=== PATIENT | male | born 1960 | race Caucasian/White ===

== ENCOUNTER → 2017-06-25 | Outpatient (CLI) | payer OTHER ==
[2017-06-25 10:28] LABS: MEAN CORPUSCULAR HEMOGLOBIN 31.1 pg (27.0-33.0); MEAN CORPUSCULAR HGB CONC 34.2 g/dl (32.0-36.5); MEAN CORPUSCULAR VOLUME 90.9 fl (80.0-96.0); RED CELL DISTRIBUTION WIDTH 12.8 % (11.5-14.5); WHITE BLOOD COUNT 5.9 K/mm3 (4.0-10.0)
[2017-06-25 10:50] LABS: ALBUMIN 3.4 GM/DL (3.2-5.2); ALBUMIN/GLOBULIN RATIO 0.94 (1.00-1.93); ALKALINE PHOSPHATASE 95 U/L (45-117); ALT/SGPT 20 U/L (12-78); ANION GAP 5 MEQ/L (8-16); AST/SGOT 14 U/L (15-37); BILIRUBIN,TOTAL 0.9 MG/DL (0.2-1.0); BLOOD UREA NITROGEN 16 MG/DL (7-18); CALCIUM LEVEL 8.9 MG/DL (8.5-10.1); CARBON DIOXIDE LEVEL 29 MEQ/L (21-32); CHLORIDE LEVEL 108 MEQ/L (98-107); CHOLESTEROL LEVEL 198 MG/DL (<200); CREATININE FOR GFR 0.76 MG/DL (0.70-1.30); GLOMERULAR FILTRATION RATE > 60.0 (>56); GLUCOSE, FASTING 89 MG/DL (70-105); POTASSIUM SERUM 4.1 MEQ/L (3.5-5.1); SODIUM LEVEL 142 MEQ/L (136-145); TRIGLYCERIDES LEVEL 196 MG/DL (<150)
== END ==
LOC: M LAB 09:15
PROVIDERS: ATTEND Family Medicine
DX: I10 Essential (primary) hypertension (principal)

== ENCOUNTER → 2018-08-22 | Outpatient (CLI) | payer OTHER ==
[2018-08-22 09:46] LABS: BASO % 0.4 % (0.0-1.0); EOS # 0.2 10^3/uL (0.0-0.50); EOS % 2.7 % (0.0-3.0); HEMATOCRIT 45.3 % (42.0-52.0); HEMOGLOBIN 15.2 g/dl (13.5-17.5); IMMATURE GRANULOCYTE % 0.5 % (0-3.0); LYMPH # 1.3 10^3/uL (1.5-4.5); LYMPH % 16.7 % (24.0-44.0); MEAN CORPUSCULAR HEMOGLOBIN 29.6 pg (27.0-33.0); MEAN CORPUSCULAR HGB CONC 33.6 g/dl (32.0-36.5); MEAN CORPUSCULAR VOLUME 88.3 fl (80.0-96.0); MONO # 0.6 10^3/uL (0.0-0.8); MONO % 7.6 % (0.0-5.0); NEUTROPHILS # 5.6 10^3/uL (1.8-7.7); NEUTROPHILS % 72.1 % (36.0-66.0); PLATELET COUNT, AUTOMATED 246 10^3/uL (150-450); RED BLOOD COUNT 5.13 10^6/uL (4.30-6.10); WHITE BLOOD COUNT 7.8 10^3/uL (4.0-10.0)
[2018-08-22 10:29] LABS: ALBUMIN 3.7 GM/DL (3.2-5.2); ALBUMIN/GLOBULIN RATIO 1.16 (1.00-1.93); ALKALINE PHOSPHATASE 95 U/L (45-117); ALT/SGPT 19 U/L (12-78); ANION GAP 9 MEQ/L (8-16); AST/SGOT 12 U/L (7-37); BILIRUBIN,TOTAL 1.1 MG/DL (0.2-1.0); BLOOD UREA NITROGEN 16 MG/DL (7-18); CALCIUM LEVEL 9.1 MG/DL (8.5-10.1); CARBON DIOXIDE LEVEL 24 MEQ/L (21-32); CHLORIDE LEVEL 108 MEQ/L (98-107); CHOLESTEROL LEVEL 192 MG/DL (<200); CREATININE FOR GFR 0.84 MG/DL (0.70-1.30); FERRITIN 14 NG/ML (26-388); GLOMERULAR FILTRATION RATE > 60.0 (>56); GLUCOSE, FASTING 94 MG/DL (70-100); HDL CHOLESTEROL 48 MG/DL (>40); IRON (FE) 102 UG/DL (65-175); LDL CHOLESTEROL 105 MG/DL (<100); NON-HDL-C 144 MG/DL; POTASSIUM SERUM 4.4 MEQ/L (3.5-5.1); SODIUM LEVEL 141 MEQ/L (136-145); TOTAL IRON BINDING CAPACITY 425 UG/DL (250-450); TOTAL PROTEIN 6.9 GM/DL (6.4-8.2); TRIGLYCERIDES LEVEL 193 MG/DL (<150)
[2018-08-22 10:34] LABS: TOTAL 25(OH) VITAMIN D 19.3 NG/ML (30.0-100.0)
[2018-08-22 10:35] LABS: FOLATE > 24.0 NG/ML
== END ==
LOC: M LAB 09:04
DX: Z98.84 Bariatric surgery status (principal); I10 Essential (primary) hypertension
CPT/HCPCS: 82746

== ENCOUNTER → 2019-08-19 | Outpatient (CLI) | payer OTHER ==
[2019-08-19 08:13] LABS: BASO % 0.5 % (0.0-1.0); EOS # 0.2 10^3/uL (0.0-0.5); EOS % 2.6 % (0.0-3.0); HEMATOCRIT 45.5 % (42.0-52.0); HEMOGLOBIN 15.1 g/dl (13.5-17.5); LYMPH # 1.4 10^3/uL (1.5-5.0); LYMPH % 21.5 % (24.0-44.0); MEAN CORPUSCULAR HEMOGLOBIN 29.3 pg (27.0-33.0); MEAN CORPUSCULAR HGB CONC 33.2 g/dl (32.0-36.5); MEAN CORPUSCULAR VOLUME 88.2 fl (80.0-96.0); MONO # 0.6 10^3/uL (0.0-0.8); MONO % 9.6 % (0.0-5.0); NEUTROPHILS # 4.4 10^3/uL (1.5-8.5); NEUTROPHILS % 65.5 % (36.0-66.0); PLATELET COUNT, AUTOMATED 252 10^3/uL (150-450); RED BLOOD COUNT 5.16 10^6/uL (4.30-6.10); WHITE BLOOD COUNT 6.6 10^3/uL (4.0-10.0)
[2019-08-19 08:40] LABS: ALBUMIN 3.7 GM/DL (3.2-5.2); ALT/SGPT 16 U/L (12-78); BILIRUBIN,TOTAL 0.9 MG/DL (0.2-1.0); BLOOD UREA NITROGEN 14 MG/DL (7-18); CARBON DIOXIDE LEVEL 24 MEQ/L (21-32); CHLORIDE LEVEL 111 MEQ/L (98-107); CHOLESTEROL LEVEL 191 MG/DL (<200); CHOLESTEROL RISK RATIO 4.063 (<5); CREATININE FOR GFR 1.02 MG/DL (0.70-1.30); GLOMERULAR FILTRATION RATE > 60.0 (>56); GLUCOSE, FASTING 92 MG/DL (70-100); HDL CHOLESTEROL 47 MG/DL (>40); LDL CHOLESTEROL 109 MG/DL (<100); NON-HDL-C 144 MG/DL; POTASSIUM SERUM 4.3 MEQ/L (3.5-5.1); SODIUM LEVEL 142 MEQ/L (136-145); TOTAL PROTEIN 6.7 GM/DL (6.4-8.2); TRIGLYCERIDES LEVEL 176 MG/DL (<150)
== END ==
LOC: M LAB 07:26
PROVIDERS: ATTEND Family Medicine
DX: I10 Essential (primary) hypertension (principal)

== ENCOUNTER 2020-05-01 15:03 | Emergency (ER) | payer OTHER ==
[~2020-05-01] VITALS: Ht 180.3 cm; Wt 181.0 kg
[2020-05-01 15:04] VITALS: BP 161/101
[2020-05-01] MEDS ORDERED: D 10TAB2 PO (15:14)
[2020-05-01] MEDS ORDERED: TOPR25TA PO (15:14)
[2020-05-01] MEDS ORDERED: ATOR40TA75 PO (15:14)
== END 2020-05-01 15:43 | disposition home or self-care (01) ==
LOC: M ED 15:03
DX: S46.212A Strain of muscle, fascia and tendon of other parts of biceps, left arm, initial encounter (principal); X50.1XXA Overexertion from prolonged static or awkward postures, initial encounter; Y92.832 Beach as the place of occurrence of the external cause; I10 Essential (primary) hypertension; E78.00 Pure hypercholesterolemia, unspecified; M54.9 Dorsalgia, unspecified; Z79.899 Other long term (current) drug therapy

== ENCOUNTER → 2021-03-06 | Outpatient (CLI) | payer OTHER ==
[~2021-03-06] MED LIST: ATOR40TA75 PO; D 10TAB2 PO; TOPR25TA PO
[2021-03-06 10:30] LABS: HEMATOCRIT 47.6 % (42.0-52.0); HEMOGLOBIN 15.2 g/dl (13.5-17.5); MEAN CORPUSCULAR HEMOGLOBIN 28.5 pg (27.0-33.0); MEAN CORPUSCULAR HGB CONC 31.9 g/dl (32.0-36.5); MEAN CORPUSCULAR VOLUME 89.1 fl (80.0-96.0); PLATELET COUNT, AUTOMATED 242 10^3/uL (150-450); RED BLOOD COUNT 5.34 10^6/uL (4.30-6.10); WHITE BLOOD COUNT 7.1 10^3/uL (4.0-10.0)
[2021-03-06 11:25] LABS: ALBUMIN 3.7 GM/DL (3.2-5.2); ALT/SGPT 20 U/L (12-78); BILIRUBIN,TOTAL 1.1 MG/DL (0.2-1.0); BLOOD UREA NITROGEN 14 MG/DL (7-18); CALCIUM LEVEL 9.2 MG/DL (8.5-10.1); CARBON DIOXIDE LEVEL 26 MEQ/L (21-32); CHLORIDE LEVEL 108 MEQ/L (98-107); CHOLESTEROL LEVEL 129 MG/DL (<200); CHOLESTEROL RISK RATIO 2.529 (<5); FERRITIN 23 NG/ML (26-388); FOLATE 10.2 NG/ML (>5.4); GLOMERULAR FILTRATION RATE > 60.0 (>56); GLUCOSE, FASTING 95 MG/DL (70-100); HDL CHOLESTEROL 51 MG/DL (>40); IRON (FE) 80 UG/DL (65-175); LDL CHOLESTEROL 44 MG/DL (<100); NON-HDL-C 78 MG/DL; PERCENT SATURATION 20.6 % (19.7-50.0); POTASSIUM SERUM 4.2 MEQ/L (3.5-5.1); SODIUM LEVEL 139 MEQ/L (136-145); TOTAL 25(OH) VITAMIN D 17.7 NG/ML (30.0-100.0); TOTAL IRON BINDING CAPACITY 388 UG/DL (250-450); TRIGLYCERIDES LEVEL 172 MG/DL (<150); VITAMIN B12 LEVEL 397 PG/ML (247-911)
== END ==
LOC: M LAB 09:14
PROVIDERS: ATTEND Family Medicine
DX: Z98.84 Bariatric surgery status (principal); I10 Essential (primary) hypertension

== ENCOUNTER 2021-04-01 09:56 | Inpatient (IN) | payer OTHER ==
[~2021-04-01] VITALS: Ht 180.3 cm; Wt 189.8 kg
[2021-04-01] MEDS ORDERED: ZOLP5TAB PO (10:15)
[2021-04-01] MEDS ORDERED: D31000TA2 PO (10:15)
[2021-04-01] MEDS ORDERED: METO1TAB32 PO (10:15)
[2021-04-01] MEDS ORDERED: VITA200016 PO (10:15)
[2021-04-01] MEDS ORDERED: NS 1,000 ML IV ONE (10:25)
[2021-04-01] MEDS ORDERED: ONDANSETRON 4MG/2ML VIAL IV ONE (10:25)
[2021-04-01] MEDS ORDERED: fentaNYL 100 MCG/2 ML INJECTION (J3010) IV ONE (10:25)
[2021-04-01 10:36] LABS: BASO # 0.1 10^3/uL (0.0-0.2); BASO % 0.3 % (0.0-1.0); EOS # 0.1 10^3/uL (0.0-0.5); EOS % 0.7 % (0.0-3.0); HEMATOCRIT 47.4 % (42.0-52.0); HEMOGLOBIN 15.2 g/dl (13.5-17.5); LYMPH # 1.7 10^3/uL (1.5-5.0); LYMPH % 9.7 % (24.0-44.0); MEAN CORPUSCULAR HEMOGLOBIN 28.6 pg (27.0-33.0); MEAN CORPUSCULAR HGB CONC 32.1 g/dl (32.0-36.5); MEAN CORPUSCULAR VOLUME 89.3 fl (80.0-96.0); MONO # 0.8 10^3/uL (0.0-0.8); MONO % 4.3 % (2.0-8.0); NEUTROPHILS % 84.5 % (36.0-66.0); PLATELET COUNT, AUTOMATED 338 10^3/uL (150-450); RED BLOOD COUNT 5.31 10^6/uL (4.30-6.10); WHITE BLOOD COUNT 17.7 10^3/uL (4.0-10.0)
[2021-04-01 11:00] LABS: ALBUMIN 3.4 GM/DL (3.2-5.2); BILIRUBIN,DIRECT 0.2 MG/DL (0.0-0.2); BILIRUBIN,TOTAL 0.8 MG/DL (0.2-1.0); TOTAL PROTEIN 7.1 GM/DL (6.4-8.2)
[2021-04-01 11:15] LABS: CK-MB VALUE MASS < 1.0 NG/ML (<3.6); CPK CREATINE PHOSPHOKINASE 72 U/L (39-308); MB/CK RELATIVE INDEX 1.39 (< OR =4); TROPONIN I < 0.02 NG/ML (< 0.10)
[2021-04-01] MEDS ORDERED: GASTROGRAFIN SOLUTION 30ML PO ONE (11:30)
[2021-04-01] MEDS: fentaNYL 100 MCG/2 ML INJECTION (J3010) IV PRN ×2 (11:42→12:50)
[2021-04-01] MEDS ORDERED: ISOVUE-370 76% 100ML VIAL As Ordered ONE (11:51)
[2021-04-01] MEDS ORDERED: PIPERACILLIN/TAZOBACTAM SOD 3.375 GM in D5W MINI-BAG PLUS 50 ML IV ONE (12:30)
[2021-04-01] MEDS ORDERED: NS 1,000 ML IV SCH (12:35)
--- NOTE | 2021-04-01 12:42 | REP ---
INDICATION: r/o perforated Addy-En-Y anastamosis. COMPARISON: 03/20/2014 the latest prior TECHNIQUE: Standard helical technique after the intravenous administration of 100 cc Isovue 370 FINDINGS: The lung bases are clear The liver, spleen, pancreas, adrenal glands, and kidneys are again seen to be within normal limits. The abdominal aorta and para-aortic regions are within normal limits. There is no evidence of intestinal obstruction. There is free fluid and free air in the upper abdomen. The osseous structures stable and intact. IMPRESSION: There is free fluid and free air likely arising from the gastric anastomosis site. A phone call was placed to the emergency department in these findings were discussed with at the time of this dictation. Critical Findings: The critical information above was relayed directly by me by telephone to Omero Brizuela on 04/01/2021 at 12:34 pm with readback verification. <Electronically signed by Jonathan German > 04/01/21 1832
[2021-04-01 12:54] LABS: INR 0.96; PARTIAL THROMBOPLASTIN TIME 27.7 SECONDS (24.2-38.5)
[2021-04-01 13:31] LABS: RSV AMPLIFICATION NEGATIVE (NEGATIVE)
--- NOTE | 2021-04-01 13:32 | ECGEPIP ---
[facility] - ED Test Date: 2021-04-01 Pat Name: MYRIAM CARNEY Department: Room: - Gender: Male Ancillary Specialist: JEREMIAS : 1960 Requested By: Omero Pimentel Order Number: [id number] Reading MD: Omero Brizuela Measurements Intervals [place] Rate: 54 P: 34 [place]: 150 QRS: 0 QRSD: 96 T: 14 QT: 456 QTc: 432 Interpretive Statements Sinus bradycardia NSTTW ABNORMALITY(S) NO PRIORS FOR COMPARISON Electronically Signed on 04-01-2021 13:32:15 EDT by Omero Brizuela
[2021-04-01] MEDS ORDERED: LIDOCAINE 1% SDV 30ML VIAL As Ordered ONE (13:36)
[2021-04-01] MEDS ORDERED: BUPIVACAINE HCL 0.25% 30ML VIAL As Ordered ONE (13:36)
[2021-04-01] MEDS ORDERED: LACRILUBE (AKWA TEARS) OPHTH OINT 3.5 GM As Ordered ONE (13:42)
[2021-04-01] MEDS ORDERED: ONDANSETRON 4MG/2ML VIAL As Ordered ONE (13:43)
[2021-04-01] MEDS ORDERED: propofoL 200 MG/20 ML VIAL As Ordered ONE (13:43)
[2021-04-01] MEDS ORDERED: LIDOCAINE 2% 100MG/5ML SDV (FOR ANES.) As Ordered ONE (13:43)
[2021-04-01] MEDS ORDERED: ROCURONIUM BROMIDE 50 MG/5 ML VIAL As Ordered ONE ×3 (13:43→16:35)
[2021-04-01] MEDS ORDERED: dexameTHASONE 4 MG/ML 1ML VIAL (J1100 PER 1MG) As Ordered ONE (13:43)
[2021-04-01] MEDS ORDERED: MIDAZOLAM INJ 2MG/2ML VIAL (J2250 PER 1MG) As Ordered ONE (13:44)
[2021-04-01] MEDS ORDERED: KETAMINE HCL 200 MG/20 ML VIAL As Ordered ONE (13:44)
[2021-04-01] MEDS ORDERED: fentaNYL 250 MCG/5 ML INJECTION (J3010) As Ordered ONE (13:44)
[2021-04-01] MEDS ORDERED: SUGAMMADEX SODIUM 500 MG/5 ML VIAL (BRIDION) As Ordered ONE (13:55)
[2021-04-01] MEDS ORDERED: SUCCINYLCHOLINE 100 MG/5 ML SYRINGE (J0330) As Ordered ONE (14:57)
[2021-04-01] MEDS ORDERED: ePHEDrine SULFATE 25 MG/5 ML(5MG/ML) SYRINGE As Ordered ONE (15:03)
[2021-04-01] MEDS ORDERED: PHENYLephrine 500MCG 5ML (100MCG/ML) SYRINGE As Ordered ONE (15:03)
[2021-04-01] MEDS ORDERED: ACETAMINOPHEN 1000MG 100ML IV BTL (OFIRMEV) (J0131 PER 10MG) As Ordered ONE (15:14)
[2021-04-01] MEDS ORDERED: METHYLENE BLUE 0.5% (5MG/ML) 10 ML AMP (PROVAYBLUE) ONE (17:11)
[2021-04-01] MEDS ORDERED: METHYLENE BLUE 0.5% (5MG/ML) 10 ML AMP (PROVAYBLUE) As Ordered ONE (17:11)
[2021-04-01] MEDS ORDERED: PHENYLEPHRINE 10MG/ML 1ML VIAL (J2370 PER 1) As Ordered ONE (17:23)
[2021-04-01] MEDS ORDERED: fentaNYL 100 MCG/2 ML INJECTION (J3010) As Ordered ONE (18:43)
[2021-04-01] MEDS ORDERED: ONDANSETRON 4MG/2ML VIAL IV PRN (19:15)
[2021-04-01] MEDS ORDERED: oxyCODONE 5MG TAB PO PRN (19:30)
[2021-04-01] MEDS ORDERED: fentaNYL 100 MCG/2 ML INJECTION (J3010) IV PRN (19:30)
[2021-04-01] MEDS ORDERED: LR 1,000 ML IV SCH (19:30)
[2021-04-01 19:57] VITALS: BP 135/81
[2021-04-01] MEDS: PIPERACILLIN/TAZOBACTAM SOD 3.375 GM in D5W MINI-BAG PLUS 50 ML IV SCH (20:16)
[2021-04-01] MEDS: PANTOPRAZOLE 40MG VIAL (C9113 PER 1) IV SCH (20:16)
[2021-04-01] MEDS: SUCRALFATE 1 GM TAB PO SCH (20:16)
[2021-04-01] MEDS: LR 1,000 ML IV SCH (20:22)
[2021-04-01 21:00] VITALS: BP 147/80
[2021-04-01 22:00] VITALS: BP 157/95
[2021-04-01] MEDS: PERCOCET 5MG/325MG TAB PO PRN (23:38)
[2021-04-02] VITALS: BP 130/82
[2021-04-02] MEDS: PIPERACILLIN/TAZOBACTAM SOD 3.375 GM in D5W MINI-BAG PLUS 50 ML IV SCH ×4 (01:23→20:24)
[2021-04-02] MEDS: MORPHINE 2 MG/ML 1ML VIAL (J2270) IV PRN ×2 (01:24→08:04)
[2021-04-02] MEDS: LR 1,000 ML IV SCH ×4 (01:24→20:23)
[2021-04-02 04:00] VITALS: BP 122/76
[2021-04-02] MEDS: PERCOCET 5MG/325MG TAB PO PRN ×2 (04:06→18:41)
[2021-04-02 04:34] LABS: BASO % 0.1 % (0.0-1.0); HEMATOCRIT 44.5 % (42.0-52.0); HEMOGLOBIN 14.2 g/dl (13.5-17.5); LYMPH # 0.9 10^3/uL (1.5-5.0); LYMPH % 5.4 % (24.0-44.0); MEAN CORPUSCULAR HEMOGLOBIN 28.9 pg (27.0-33.0); MEAN CORPUSCULAR HGB CONC 31.9 g/dl (32.0-36.5); MEAN CORPUSCULAR VOLUME 90.6 fl (80.0-96.0); MONO % 6.1 % (2.0-8.0); NEUTROPHILS # 14.5 10^3/uL (1.5-8.5); NEUTROPHILS % 87.7 % (36.0-66.0); PLATELET COUNT, AUTOMATED 258 10^3/uL (150-450); RED BLOOD COUNT 4.91 10^6/uL (4.30-6.10); WHITE BLOOD COUNT 16.5 10^3/uL (4.0-10.0)
[2021-04-02 04:56] LABS: BLOOD UREA NITROGEN 19 MG/DL (7-18); CALCIUM LEVEL 8.3 MG/DL (8.5-10.1); CARBON DIOXIDE LEVEL 26 MEQ/L (21-32); CHLORIDE LEVEL 112 MEQ/L (98-107); CREATININE FOR GFR 1.02 MG/DL (0.70-1.30); GLOMERULAR FILTRATION RATE > 60.0 (>56); GLUCOSE, FASTING 122 MG/DL (70-100); POTASSIUM SERUM 4.2 MEQ/L (3.5-5.1); SODIUM LEVEL 141 MEQ/L (136-145)
[2021-04-02 08:04] VITALS: BP 138/84
--- NOTE | 2021-04-02 09:33 | ROOPDOC ---
[facility] Report Of Operation Report of Operation DATE OF PROCEDURE: 04/01/21 PREPROCEDURE DIAGNOSES: Perforated viscus, morbid obesity BMI 59, gastric bypass status POSTPROCEDURE DIAGNOSES: perforated gastrojejunostomy anastomosis. PROCEDURE: robotic assisted laparoscopic repair of gastrojejunostomy perforation with omental patch repair, intraoperative EGD (Dr. Hurst). SURGEON: Claude Lewis MD ADMINISTRATIVE REPRESENTATIVE: Dr. Hurst performed intraoperative upper endoscopy ANESTHESIA: General Endotracheal Anesthesia. ESTIMATED BLOOD LOSS: Approximately 50 mL. COMPLICATIONS: none, extubated. REMARKS: 60 M morbidly obese with remote history of gastric bypass done laparoscopically in 2009, with one day history of sudden epigastric pain that woke him up this morning. PROCEDURE NOTE: very thick omentum, signs of acute inflammation, exudate on left upper quadrant at the hiatus, near the splenic area. 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 DESCRIPTION OF PROCEDURE: . CLAUDE LEWIS MD April 02, 2021 09:33
--- NOTE | 2021-04-02 09:38 | IPNPDOC ---
Text Note Date of Service The patient was seen on 04/02/21. NOTE Patient underwent emergent surgery for perforation at g-j anastomosis of his g astric bypass yesterday. He was extubated (which was a concern preoperatively given his morbid obesity, bmi 59), hemodynamically stable overnight. I kept him the icu for closer monitoring but over all seems to be doing well saved for pain control. Still relatively low urine output. VS,Fishbone, I+O VS, Fishbone, I+O Laboratory Tests 04/01/21 10:17 04/02/21 04:09 Vital Signs Date Time Temp Pulse Resp B/P (MAP) Pulse Ox O2 Delivery O2 Flow Rate FiO2 04/02/21 08:04 16 2 Nasal Cannula 04/02/21 04:00 2.0 04/02/21 04:00 98.1 83 122/76 (91) I&O- Last 24 Hours up to 6 AM 04/02/21 06:00 Intake Total 7755 ml Output Total 990 ml Balance 6765 ml ELLIOTT LEWIS MD April 02, 2021 09:38
[2021-04-02] MEDS: METOPROLOL SUCC *XL* 25MG TAB (TopROL *XL*) PO SCH (09:44)
[2021-04-02] MEDS: SUCRALFATE 1 GM TAB PO SCH ×4 (09:44→20:24)
[2021-04-02] MEDS: KETOROLAC 30 MG/ML 1ML VIAL IV SCH ×3 (09:44→21:15)
[2021-04-02] MEDS: PANTOPRAZOLE 40MG VIAL (C9113 PER 1) IV SCH ×2 (09:44→20:24)
[2021-04-02] MEDS: ENOXAPARIN 40MG/0.4ML SYRINGE (J1650 PER 10MG) SC SCH (09:45)
[2021-04-02] MEDS: ATORVASTATIN 20 MG TAB PO SCH (09:45)
[2021-04-02 12:00] VITALS: BP 142/85
[2021-04-02 16:00] VITALS: BP 154/77
[2021-04-02] MEDS ORDERED: NS 500 ML IV ONE (16:15)
[2021-04-02 20:00] VITALS: BP 149/82
[2021-04-03] VITALS (10 sets, daily range): BP systolic 129–193; BP diastolic 64–103
[2021-04-03] MEDS: LR 1,000 ML IV SCH ×3 (01:33→12:20)
[2021-04-03] MEDS: PIPERACILLIN/TAZOBACTAM SOD 3.375 GM in D5W MINI-BAG PLUS 50 ML IV SCH ×4 (01:33→20:49)
[2021-04-03] MEDS: KETOROLAC 30 MG/ML 1ML VIAL IV SCH ×4 (03:07→22:57)
[2021-04-03 04:16] LABS: BASO % 0.3 % (0.0-1.0); EOS # 0.3 10^3/uL (0.0-0.5); EOS % 2.4 % (0.0-3.0); HEMATOCRIT 38.5 % (42.0-52.0); HEMOGLOBIN 12.1 g/dl (13.5-17.5); LYMPH # 0.7 10^3/uL (1.5-5.0); LYMPH % 6.8 % (24.0-44.0); MEAN CORPUSCULAR HEMOGLOBIN 28.7 pg (27.0-33.0); MEAN CORPUSCULAR HGB CONC 31.4 g/dl (32.0-36.5); MEAN CORPUSCULAR VOLUME 91.4 fl (80.0-96.0); MONO # 0.7 10^3/uL (0.0-0.8); MONO % 6.2 % (2.0-8.0); NEUTROPHILS % 83.8 % (36.0-66.0); PLATELET COUNT, AUTOMATED 200 10^3/uL (150-450); RED BLOOD COUNT 4.21 10^6/uL (4.30-6.10); WHITE BLOOD COUNT 10.7 10^3/uL (4.0-10.0)
[2021-04-03 04:40] LABS: BLOOD UREA NITROGEN 20 MG/DL (7-18); CALCIUM LEVEL 7.6 MG/DL (8.5-10.1); CARBON DIOXIDE LEVEL 28 MEQ/L (21-32); CHLORIDE LEVEL 110 MEQ/L (98-107); CREATININE FOR GFR 0.99 MG/DL (0.70-1.30); GLOMERULAR FILTRATION RATE > 60.0 (>56); GLUCOSE, FASTING 93 MG/DL (70-100); POTASSIUM SERUM 3.9 MEQ/L (3.5-5.1); SODIUM LEVEL 141 MEQ/L (136-145)
[2021-04-03] MEDS: SUCRALFATE 1 GM TAB PO SCH ×4 (09:08→20:49)
[2021-04-03] MEDS: METOPROLOL SUCC *XL* 25MG TAB (TopROL *XL*) PO SCH (09:09)
[2021-04-03] MEDS: ATORVASTATIN 20 MG TAB PO SCH (09:09)
[2021-04-03] MEDS: PANTOPRAZOLE 40MG VIAL (C9113 PER 1) IV SCH ×2 (09:10→20:49)
[2021-04-03] MEDS: ENOXAPARIN 40MG/0.4ML SYRINGE (J1650 PER 10MG) SC SCH (09:10)
[2021-04-03] MEDS: VoLumen 0.1% SUSPENSION 450ML BOTTLE PO SCH ×3 (12:54→13:40)
[2021-04-03] MEDS ORDERED: GLUCAGON INJ 1MG VIAL As Ordered ONE (13:36)
[2021-04-03] MEDS ORDERED: ISOVUE-370 76% 100ML VIAL As Ordered ONE ×2 (13:47→14:24)
[2021-04-03] MEDS: PERCOCET 5MG/325MG TAB PO PRN (15:18)
--- NOTE | 2021-04-03 16:46 | REP ---
INDICATION: s/ gastric bypass r/o g-g fistula, j-j narrowing COMPARISON: 04/01/2021. TECHNIQUE: CT Scan of the abdomen and pelvis was performed with intravenous administration of 100 cc of Isovue 370, and volumen oral contrast. Sagittal and coronal reconstruction images are performed. There was estimated to be about 50-70 cc of infiltration of IV contrast at the IV site. Instructions were given for short-term treatment of the site. The study is limited due to patient motion. FINDINGS: Lung bases: Calcified granuloma in the lingular segment of the left upper lobe. There is a small left pleural effusion. There is patchy atelectasis or infiltrate in the left lower lobe. Mild parenchymal opacity in the right posterior costophrenic angle probably represent dependent atelectatic change. Liver: There is a tiny calcified granuloma in the liver. Gallbladder: Prior cholecystectomy. Spleen: A 1.5 cm hypodensity in the anterior superior spleen is unchanged, possibly a cyst. Few calcified splenic granulomas are seen. Adrenals: Normal. Pancreas: Normal. Kidneys: Normal. Small and large bowel: There is a tiny focus of extraluminal air lateral to the stomach. Small amount of extraluminal air and fluid is seen anterior to the spleen. The previously noted contrast and air directly adjacent to the stomach is no longer visualized. There is a decreased amount of free intraperitoneal air compared to the prior study. A drain enters the right mid abdomen and the distal tip is in the upper mid abdomen. There are a few sigmoid diverticula present. There is no evidence of significant bowel dilatation. There is no definite evidence of focal bowel stricture. Free fluid: None. Abdominal aorta: No aneurysm or dissection. Adenopathy: None. Appendix: Not inflamed. Osseous structures: There are degenerative changes of the spine without compression deformity. Pelvis: No mass. There are venous filters in the common iliac veins bilaterally. IMPRESSION: Small left pleural effusion. Left lower lobe atelectasis or infiltrate. There is a tiny focus of extraluminal air lateral to the stomach. Small amount of extraluminal air and fluid is seen anterior to the spleen, this fluid slightly increased since the prior study. The previously noted contrast and air directly adjacent to the stomach is no longer visualized. There is a decreased amount of free intraperitoneal air compared to the prior study. <Electronically signed by Niranjan Drew > 04/03/21 [id number]
[2021-04-03] MEDS: MORPHINE 2 MG/ML 1ML VIAL (J2270) IV PRN (21:34)
[2021-04-03] MEDS: NITROGLYCERIN 2% OINT 1 GM *U/D* PKT TOP SCH (22:58)
[2021-04-04] VITALS (12 sets, daily range): BP systolic 131–185; BP diastolic 68–98
[2021-04-04] MEDS: LR 1,000 ML IV SCH (01:23)
[2021-04-04] MEDS: PIPERACILLIN/TAZOBACTAM SOD 3.375 GM in D5W MINI-BAG PLUS 50 ML IV SCH ×4 (02:24→21:06)
[2021-04-04] MEDS: KETOROLAC 30 MG/ML 1ML VIAL IV SCH (04:39)
[2021-04-04] MEDS: NITROGLYCERIN 2% OINT 1 GM *U/D* PKT TOP SCH ×4 (04:42→21:27)
[2021-04-04 05:08] LABS: BASO % 0.3 % (0.0-1.0); EOS # 0.3 10^3/uL (0.0-0.5); EOS % 3.4 % (0.0-3.0); HEMATOCRIT 37.8 % (42.0-52.0); LYMPH # 0.5 10^3/uL (1.5-5.0); LYMPH % 5.6 % (24.0-44.0); MEAN CORPUSCULAR HEMOGLOBIN 28.8 pg (27.0-33.0); MEAN CORPUSCULAR HGB CONC 31.7 g/dl (32.0-36.5); MEAN CORPUSCULAR VOLUME 90.6 fl (80.0-96.0); MONO # 0.6 10^3/uL (0.0-0.8); MONO % 6.6 % (2.0-8.0); NEUTROPHILS # 7.9 10^3/uL (1.5-8.5); NEUTROPHILS % 83.6 % (36.0-66.0); PLATELET COUNT, AUTOMATED 211 10^3/uL (150-450); RED BLOOD COUNT 4.17 10^6/uL (4.30-6.10); WHITE BLOOD COUNT 9.4 10^3/uL (4.0-10.0)
[2021-04-04 05:42] LABS: BLOOD UREA NITROGEN 12 MG/DL (7-18); CARBON DIOXIDE LEVEL 26 MEQ/L (21-32); CHLORIDE LEVEL 108 MEQ/L (98-107); CREATININE FOR GFR 0.83 MG/DL (0.70-1.30); GLOMERULAR FILTRATION RATE > 60.0 (>56); GLUCOSE, FASTING 79 MG/DL (70-100); POTASSIUM SERUM 4.1 MEQ/L (3.5-5.1); SODIUM LEVEL 140 MEQ/L (136-145)
--- NOTE | 2021-04-04 07:25 | IPNPDOC ---
Text Note Date of Service The patient was seen on 04/04/21. NOTE POD 3 Robotic assisted laparoscopic repair of gastrojejunal perforation, omen toplasty gastric bypass status morbid obesity with bmi 59. 6 Patient not able to be accomodated on fluoroscopy table due to weight. i got a CT enterogram instead. Unfortunately did not give me much new information. There is no evidence for bowel obstruction, small amount of retained air near the sp boni. No fluid collection will start po intake today transfer to regular floors pt continue bid protonix, will add carafate continue abx - 7 days VS,Fishbone, I+O VS, Fishbone, I+O Laboratory Tests 04/04/21 04:59 Vital Signs Date Time Temp Pulse Resp B/P (MAP) Pulse Ox O2 Delivery O2 Flow Rate FiO2 04/04/21 06:00 84 18 156/75 (102) 96 Room Air 04/04/21 00:00 99.5 04/03/21 08:00 2.0 I&O- Last 24 Hours up to 6 AM 04/04/21 06:00 Intake Total 4185 ml Output Total 140 ml Balance 4045 ml ELLIOTT LEWIS MD April 04, 2021 07:25
[2021-04-04] MEDS: ENOXAPARIN 40MG/0.4ML SYRINGE (J1650 PER 10MG) SC SCH (08:18)
[2021-04-04] MEDS: PANTOPRAZOLE 40MG VIAL (C9113 PER 1) IV SCH ×2 (08:18→21:06)
[2021-04-04] MEDS: SUCRALFATE 1 GM TAB PO SCH ×4 (08:19→21:06)
[2021-04-04] MEDS: ATORVASTATIN 20 MG TAB PO SCH (08:19)
[2021-04-04] MEDS: METOPROLOL SUCC *XL* 25MG TAB (TopROL *XL*) PO SCH (08:19)
--- NOTE | 2021-04-04 13:18 | HPEPDOC ---
General Surgery H&P Date of Admission April 01, 2021 Attending Physician: ELLIOTT LEWIS MD History and Physical CHIEF COMPLAINT: abdominal pain HISTORY OF PRESENT ILLNESS: Patient is a 60-year-old male who had a remote history of laparoscopic gastric bypass performed roughly about 10 years ago in [facility] in [place]. Reports he was roughly about 575 pounds at that time. He did well initially from his gastric bypass surgery and lost weight but through time regained a lot of the weight that he lost. Currently weighs about 440 pounds. He denies any prior problems with his gastric bypass, any dumping syndrome, and prior anastomotic ulcers. He denies smoking. This morning he got woken up with severe, sharp epigastric pain radiating to the ABDOMEN into his chest associated with nausea. This was roughly about 4 AM in the morning. He denies any prior episodes of similar symptoms. With the severe pain he was brought to the emergency room ALLERGIES: Please see below. HOME MEDICATIONS: Please see below. PAST MEDICAL HISTORY: 1. morbid obesity 2. denies diabets, PAPO 3.insomnia 4. hypertension 5. hypercholesterolemia PAST SURGICAL HISTORY: 1. tonsillectomy/adenoidectomy 2. Laparoscopic gastric bypass 3. umbilical hernia repair 4. Laparoscopic Cholecystectomy. 5. Femoral Stents 6. Left hand tendon repair PERSONAL/SOCIAL HISTORY: Denies smoking, alcohol use, or recreational drug use. REVIEW OF SYSTEMS: GENERAL: Symptoms are a few hours old. Denies abnormal weight loss, fevers or chills. HEENT: denies problems with vision or hearing. NECK: denies any neck pain. CARDIOVASCULAR: Denies chest pain and palpitations. MUSCULOSKELETAL: reports back pain. SKIN: Denies rash. NEUROLOGIC: Denies headache, stroke and transient ischemic attack PSYCHIATRIC: Denies anxiety and depression. ENDOCRINE: Denies thyroid disease. HEMATOLOGY/ONCOLOGY: Denies any bleeding or clotting disorder. HEART: Denies any chest pains, palpitations, paroxysmal dyspnea, orthopnea. PULMONARY: Denies chronic cough, dyspnea and wheezing. GASTROINTESTINAL: see above. He had a loose bm this morning at 4 am. GENITOURINARY: Denies dysuria, frequency, hematuria and nocturia. Denies obstructive sleep apnea. Reports he was tested before his gastric bypass and deemed he did not have any PAPO at that time. ENDOCRINE: Denies polydipsia, polyphagia, polyuria, heat or cold intolerance. INFECTIOUS: Denies any recent upper respiratory tract infection, UTI, need for use of antibiotics. NUTRITION: usually good appetite, none today. PHYSICAL EXAMINATION: VITAL SIGNS: Please see below. GENERAL APPEARANCE: Patient seen very uncomfortable, splinting when taking the [place], laying on the bed. Awake, alert, oriented. HEENT: Normocephalic, atraumatic. [place] palpebral conjunctivae. Anicteric sclerae. Lips dry. CHEST: No chest wall abnormalities. Slight tachypnea, shallow deep breaths, splinting with deep breaths due to abdominal pain, no wheezes. NECK: Short supple neck. LUNGS: Lung sounds are clear to auscultation bilaterally. No wheezing appreciated. HEART: No chest wall abnormalities. Heart rate and rhythm are regular with no murmurs. ABDOMEN: Markedly obese abdomen, large draping pannus. Several arthroscopic port sites noted on his upper abdomen. Did not peanut picker whether he has some curvilinear incision at the umbilicus but he does have some thickening underneath there. No obvious herniations. He is exquisitely tender over the epigastric area with rebound and guarding even to light tactile palpation. No skin changes. Feels moderately distended on the upper abdomen. SKIN: Warm and dry. EXTREMITIES: Minimal chronic lower extremity edema. NEUROLOGICAL: Awake, alert and oriented. ANCILLARIES: . LABORATORY DATA: Please see below. MICROBIOLOGY: Please see below. IMAGING: CT abdomen and pelvis. There is free fluid and free air likely arising from the gastric anastomosis site. IMPRESSION AND PLAN: Perforated viscus likely perforation at the gastrojejunostomy anastomosis Bariatric surgery status Morbid obesity with a BMI 59.6 Generalized peritonitis Patient symptoms consistent with acute onset of perforation roughly about 4 AM that woke him up possibly secondary to gastrojejunal ulcer perforation. He had a prior history of gastric bypass done 10 years ago. Unfortunately he has regained most of the weight that he initially lost. We will bring him to the operating room. I'll attempt to do this laparoscopically with the da Leeanna robot surgery to help me with the procedure. Patient has been given a dose of Zosyn 3.375 g IV which we will continue. He was bolused with 1 L of normal saline. I'll keep him at 150 mL's of lactated Ringer's. He was advised that he needs surgery and has consented to it. We discussed risks and benefits of the surgery. We will proceed with the surgery soon as the operating room is available. Vital Signs Vital Signs Date Time Temp Pulse Resp B/P (MAP) Pulse Ox O2 Delivery O2 Flow Rate FiO2 04/01/21 13:30 80 132/65 (87) 94 Nasal Cannula 2.0 04/01/21 12:50 17 04/01/21 10:07 98.1 Laboratory Data Labs 24H Laboratory Tests 2 04/01/21 10:17: Immature Granulocyte % (Auto) 0.5, Neutrophils (%) (Auto) 84.5H, Lymphocytes (%) (Auto) 9.7L, Monocytes (%) (Auto) 4.3, Eosinophils (%) (Auto) 0.7, Basophils (%) (Auto) 0.3, Neutrophils # (Auto) 15.0H, Lymphocytes # (Auto) 1.7, Monocytes # (Auto) 0.8, Eosinophils # (Auto) 0.1, Basophils # (Auto) 0.1, Nucleated Red Blood Cells % (auto) 0.0, Prothrombin Time 13.0, Prothromb Time International Ratio 0.96, Activated Partial Thromboplast Time 27.7, Lactic Acid Level 3.0*H, Total Bilirubin 0.8, Direct Bilirubin 0.2, Aspartate Amino Transf (AST/SGOT) 13, Alanine Aminotransferase (ALT/SGPT) 21, Alkaline Phosphatase 110, Total Creatine Kinase 72, Creatine Kinase MB < 1.0, Creatine Kinase MB Relative Index 1.39, Troponin I < 0.02, Total Protein 7.1, Albumin 3.4, Albumin/Globulin Ratio 0.9, L ipase 99 04/01/21 10:28: POC Glucose (Misc Panel) 162H, POC Sodium (Misc Panel) 140, POC Potassium (Misc Panel) 4.2, POC Chloride (Misc Panel) 107, POC Total CO2 (Misc Panel) 25.0, POC Blood Urea Nitrogen (Misc Panel 18, POC Ionized Calcium (Misc Panel) 4.6, POC Creatinine (Misc Panel) 1.0, POC Hematocrit (Misc Panel) 47.0 04/01/21 12:36: Coronavirus (COVID-19)(PCR) NEGATIVE, Influenza Type A (RT-PCR) NEGATIVE, Influenza Type B (RT-PCR) NEGATIVE, Respiratory Syncytial Virus (PCR) NEGATIVE CBC/BMP Laboratory Tests 04/01/21 10:17 Home Medications Scheduled Atorvastatin Calcium (Atorvastatin Calcium) 40 Mg Tablet, 40 MG PO DAILY, (Reported) Cholecalciferol (Vitamin D3) (Vitamin D3) 50 Mcg Capsule, 50 MCG PO DAILY, (Reported) Metoprolol Succinate (Metoprolol Succinate) 25 Mg Tab.er.24h, 25 MG PO DAILY, (Reported) Scheduled PRN Zolpidem Tartrate (Zolpidem Tartrate) 5 Mg Tablet, 5 MG PO QHS PRN for SLEEP, (Reported) Allergies Coded Allergies: No Known Allergies (Unverified , 05/01/20) A-FIB/CHADSVASC A-FIB History Current/History of A-Fib/PAF?: No Current PO Anticoag Therapy: No ELLIOTT LEWIS MD April 01, 2021 13:39
[2021-04-04] MEDS ORDERED: zolPIDEM TARTRATE 5 MG TAB PO PRN (13:30)
[2021-04-04] MEDS: ACETAMINOPHEN TAB 650MG DOSE (2X325MG) PO PRN ×2 (15:21→21:28)
[2021-04-05] MEDS: PIPERACILLIN/TAZOBACTAM SOD 3.375 GM in D5W MINI-BAG PLUS 50 ML IV SCH ×2 (02:42→08:04)
[2021-04-05 06:00] VITALS: BP 134/69
[2021-04-05] MEDS: NITROGLYCERIN 2% OINT 1 GM *U/D* PKT TOP SCH ×4 (06:35→21:01)
[2021-04-05 06:41] LABS: BASO % 0.6 % (0.0-1.0); EOS # 0.4 10^3/uL (0.0-0.5); EOS % 5.2 % (0.0-3.0); HEMOGLOBIN 12.6 g/dl (13.5-17.5); LYMPH # 0.6 10^3/uL (1.5-5.0); LYMPH % 9.4 % (24.0-44.0); MEAN CORPUSCULAR HEMOGLOBIN 28.6 pg (27.0-33.0); MEAN CORPUSCULAR HGB CONC 32.3 g/dl (32.0-36.5); MEAN CORPUSCULAR VOLUME 88.6 fl (80.0-96.0); MONO # 0.6 10^3/uL (0.0-0.8); MONO % 8.7 % (2.0-8.0); NEUTROPHILS # 5.1 10^3/uL (1.5-8.5); NEUTROPHILS % 75.2 % (36.0-66.0); PLATELET COUNT, AUTOMATED 242 10^3/uL (150-450); WHITE BLOOD COUNT 6.8 10^3/uL (4.0-10.0)
[2021-04-05 07:09] LABS: BLOOD UREA NITROGEN 7 MG/DL (7-18); CALCIUM LEVEL 9.2 MG/DL (8.5-10.1); CARBON DIOXIDE LEVEL 26 MEQ/L (21-32); CHLORIDE LEVEL 108 MEQ/L (98-107); CREATININE FOR GFR 0.76 MG/DL (0.70-1.30); GLOMERULAR FILTRATION RATE > 60.0 (>56); GLUCOSE, FASTING 95 MG/DL (70-100); POTASSIUM SERUM 3.5 MEQ/L (3.5-5.1); SODIUM LEVEL 139 MEQ/L (136-145)
[2021-04-05] MEDS: PANTOPRAZOLE 40MG VIAL (C9113 PER 1) IV SCH (08:04)
[2021-04-05] MEDS: SUCRALFATE 1 GM TAB PO SCH ×4 (08:05→21:01)
[2021-04-05] MEDS: ENOXAPARIN 40MG/0.4ML SYRINGE (J1650 PER 10MG) SC SCH (08:05)
[2021-04-05] MEDS: ATORVASTATIN 20 MG TAB PO SCH (08:05)
[2021-04-05] MEDS: METOPROLOL SUCC *XL* 25MG TAB (TopROL *XL*) PO SCH (08:06)
--- NOTE | 2021-04-05 11:16 | IPNPDOC ---
Text Note Date of Service The patient was seen on 04/05/21. NOTE General Surgery Dr Duran. POD 4 Robotic assisted laparoscopic repair of gastrojejunal perforation, omentoplasty gastric bypass status morbid obesity with bmi 59. 6 PT ordered 04/04, pending. Tolerating clear liquids. Afebrile VSS Abdomen. Incisions C/D/I, ALIREZA drain 45 mL drainage recorded. WBC 6.8 Hemoglobin 12.6 A/P POD 4 Robotic assisted laparoscopic repair of gastrojejunal perforation, omentoplasty The patient is reviewed and examined as per Dr. Duran this morning. Pain has been controlled. Tolerating clear liquids continue Protonix, changed to po. Continue Carafate. continue abx, changed to by mouth Cipro/Flagyl, continue 7 days Physical therapy eval. Possibly consider discharge 04/06 pending physical therapy evaluation. VS,Fishbone, I+O VS, Fishbone, I+O Laboratory Tests 04/05/21 06:22 Vital Signs Date Time Temp Pulse Resp B/P (MAP) Pulse Ox O2 Delivery O2 Flow Rate FiO2 04/05/21 10:19 153/84 04/05/21 10:16 98.8 04/05/21 08:16 81 16 92 Room Air 04/05/21 06:00 2.0 I&O- Last 24 Hours up to 6 AM 04/05/21 06:00 Intake Total 2201 ml Output Total 55 ml Balance 2146 ml Aziza Epps April 05, 2021 11:16
[2021-04-05] MEDS: CIPROFLOXACIN 500MG TABLET PO SCH ×2 (11:42→17:42)
[2021-04-05] MEDS: ACETAMINOPHEN TAB 650MG DOSE (2X325MG) PO PRN ×3 (11:44→23:45)
[2021-04-05] MEDS: metroNIDAZOLE (FLAGYL) 500MG TABLET PO SCH ×2 (13:05→21:01)
[2021-04-05 14:00] VITALS: BP 151/74
[2021-04-05] MEDS: PANTOPRAZOLE 40MG TAB (PROTONIX) PO SCH (21:01)
[2021-04-05 22:00] VITALS: BP 144/84
[2021-04-06] MEDS: NITROGLYCERIN 2% OINT 1 GM *U/D* PKT TOP SCH ×2 (04:43→09:21)
[2021-04-06] MEDS: CIPROFLOXACIN 500MG TABLET PO SCH (05:27)
[2021-04-06] MEDS: metroNIDAZOLE (FLAGYL) 500MG TABLET PO SCH (05:27)
[2021-04-06] MEDS: ACETAMINOPHEN TAB 650MG DOSE (2X325MG) PO PRN (05:54)
[2021-04-06 06:00] VITALS: BP 145/81
[2021-04-06 06:24] LABS: BASO % 0.6 % (0.0-1.0); EOS # 0.5 10^3/uL (0.0-0.5); EOS % 6.8 % (0.0-3.0); HEMATOCRIT 39.9 % (42.0-52.0); LYMPH # 0.8 10^3/uL (1.5-5.0); LYMPH % 12.1 % (24.0-44.0); MEAN CORPUSCULAR HEMOGLOBIN 28.8 pg (27.0-33.0); MEAN CORPUSCULAR HGB CONC 32.6 g/dl (32.0-36.5); MEAN CORPUSCULAR VOLUME 88.3 fl (80.0-96.0); MONO # 0.7 10^3/uL (0.0-0.8); MONO % 10.1 % (2.0-8.0); NEUTROPHILS # 4.8 10^3/uL (1.5-8.5); NEUTROPHILS % 69.4 % (36.0-66.0); PLATELET COUNT, AUTOMATED 269 10^3/uL (150-450); RED BLOOD COUNT 4.52 10^6/uL (4.30-6.10); WHITE BLOOD COUNT 6.9 10^3/uL (4.0-10.0)
[2021-04-06 06:41] LABS: BLOOD UREA NITROGEN 6 MG/DL (7-18); CALCIUM LEVEL 8.8 MG/DL (8.5-10.1); CARBON DIOXIDE LEVEL 27 MEQ/L (21-32); CHLORIDE LEVEL 108 MEQ/L (98-107); CREATININE FOR GFR 0.71 MG/DL (0.70-1.30); GLOMERULAR FILTRATION RATE > 60.0 (>56); GLUCOSE, FASTING 96 MG/DL (70-100); POTASSIUM SERUM 3.3 MEQ/L (3.5-5.1); SODIUM LEVEL 140 MEQ/L (136-145)
[2021-04-06] MEDS ORDERED: SUCR1TA PO (08:39)
[2021-04-06] MEDS ORDERED: PANT40TA29 PO (08:39)
[2021-04-06] MEDS ORDERED: FLAG500T PO (08:39)
[2021-04-06] MEDS ORDERED: CIPR-249 PO (08:39)
[2021-04-06] MEDS ORDERED: AMLO1TAB25 PO (08:41)
[2021-04-06 09:20] VITALS: BP 140/82
[2021-04-06] MEDS: ENOXAPARIN 40MG/0.4ML SYRINGE (J1650 PER 10MG) SC SCH (09:20)
[2021-04-06] MEDS: METOPROLOL SUCC *XL* 25MG TAB (TopROL *XL*) PO SCH (09:20)
[2021-04-06] MEDS: PANTOPRAZOLE 40MG TAB (PROTONIX) PO SCH (09:20)
[2021-04-06] MEDS: SUCRALFATE 1 GM TAB PO SCH (09:20)
[2021-04-06] MEDS: ATORVASTATIN 20 MG TAB PO SCH (09:20)
--- NOTE | 2021-04-06 15:48 | DS.PDOC ---
Discharge Summary General Date of Admission April 01, 2021 at 19:11 Date of Discharge 04/06/21 Discharge Summary PROCEDURES PERFORMED DURING STAY: Robotic assisted laparoscopic repair of gastrojejunal perforation, omentoplasty as per Dr. Duran 04/01/21 ADMITTING DIAGNOSES: Perforated viscus likely perforation at the gastrojejunostomy anastomosis Bariatric surgery status Morbid obesity with a BMI 59.6 Generalized peritonitis Hypertension Dyslipidemia Insomnia DISCHARGE DIAGNOSES: Perforated viscus likely perforation at the gastrojejunostomy anastomosis status post Robotic assisted laparoscopic repair of gastrojejunal perforation, omentoplasty as per Dr. Duran 04/01/21 Bariatric surgery status Morbid obesity with a BMI 59.6 Generalized peritonitis Hypertension Dyslipidemia Insomnia HISTORY OF PRESENT ILLNESS: Patient is a 60-year-old male who had a remote history of laparoscopic gastric bypass performed roughly about 10 years ago in [facility] in [place]. Reports he was roughly about 575 pounds at that time. He did well initially from his gastric bypass surgery and lost weight but through time regained a lot of the weight that he lost. Currently weighs about 440 pounds. He denied any prior problems with his gastric bypass, any dumping syndrome, and prior anastomotic ulcers. On the morning of admission he got woken up with severe, sharp epigastric pain radiating to the abdomen and into his chest associated with nausea. This was roughly about 4 AM in the morning. He denies any prior episodes of similar symptoms. With the severe pain he was brought to the emergency room HOSPITAL COURSE: The patient was reviewed and examined as per Dr. Duran. The patient's symptoms were felt consistent with acute onset of perforation roughly about 4 AM that woke him up possibly secondary to gastrojejunal ulcer perforation. He had a prior history of gastric bypass done 10 years ago. Unfortunately he has regained most of the weight that he initially lost. Plan was for robotic-assisted laparoscopic repair of gastrojejunal perforation, omentoplasty as per Dr. Duran. The patient was placed on IV Zosyn, IV fluids. The patient tolerated the procedure, he was extubated and hemodynamically stable following the procedure. She was initially monitored in the ICU. By 04/04/21 the patient was felt stable to transfer to a regular floor. The patient was continued on Protonix twice a day, Carafate was added. The patient was started on clear liquids 04/04. Physical therapy was requested 512 and the patient was felt at his baseline status and safe for discharge home. Was tolerating clear liquids and was advanced to soft diet. During his admission his blood pressure was noted to be elevated, Norvasc 10 mg daily was added blood pressure at the time of discharge was noted to be 140/82. The patient was transitioned to oral antibiotics with plan to continue for 7 days. By 04/06/21 the patient was felt stable for discharge home. He was noted to have 85 mL out of his ALIREZA on 04/05 and the plan was for him to go home with the ALIREZA drain and follow-up next week with Dr. Duran. DISCHARGE MEDICATIONS: Please see below. ALLERGIES: Please see below. PHYSICAL EXAMINATION ON DISCHARGE: Afebrile GENERAL: No acute distress HEENT: Moist mucous membranes CARDIOVASCULAR EXAMINATION: S1-S2 regular rate rhythm RESPIRATORY EXAMINATION: Clear to auscultation ABDOMINAL EXAMINATION: Surgical incisions clean, dry, intact. ALIREZA drain in place. LABORATORY DATA: Please see below DISCHARGE INSTRUCTIONS: Discharge home No lifting greater than 20 pounds for 2 weeks ALIREZA drain intact, the patient is advised to keep a log of the amount of drainage and bring this to his appointment with Dr. Duran. Continue dry dressing daily to ALIREZA drain area and surgical wounds. Continue to keep incisions clean and dry. Cipro 500 mg by mouth twice a day for an additional 5 days Flagyl 500 mg by mouth every 8 hours for an additional 5 days Follow-up with PCP for continued management of hypertension. Norvasc 10 mg daily for BP control was added during his admission. ITEMS TO FOLLOWUP ON ON OUTPATIENT: Follow-up ALIREZA drain in the office next week. DISCHARGE CONDITION: Stable. TIME SPENT ON DISCHARGE: Greater than 30 minutes. Vital Signs/I&Os Vital Signs Date Time Temp Pulse Resp B/P (MAP) Pulse Ox O2 Delivery O2 Flow Rate FiO2 04/06/21 09:20 81 140/82 04/06/21 06:00 97.5 17 93 04/05/21 23:17 Room Air 04/05/21 06:00 2.0 I&O- Last 24 Hours up to 6 AM 04/06/21 06:00 Intake Total 1250 ml Output Total 43 ml Balance 1207 ml Laboratory Data Labs 24H Laboratory Tests 2 04/06/21 06:00: Immature Granulocyte % (Auto) 1.0, Neutrophils (%) (Auto) 69.4H, Lymphocytes (%) (Auto) 12.1L, Monocytes (%) (Auto) 10.1H, Eosinophils (%) (Auto) 6.8H, Basophils (%) (Auto) 0.6, Neutrophils # (Auto) 4.8, Lymphocytes # (Auto) 0.8L, Monocytes # (Auto) 0.7, Eosinophils # (Auto) 0.5, Basophils # (Auto) 0.0, Nucleated Red Blood Cells % (auto) 0.0, Anion Gap 5L, Glomerular Filtration Rate > 60.0, Calcium Level 8.8 CBC/BMP Laboratory Tests 04/06/21 06:00 Discharge Medications Scheduled Amlodipine Besylate (Amlodipine Besylate) 10 Mg Tablet, 10 MG PO DAILY Atorvastatin Calcium (Atorvastatin Calcium) 40 Mg Tablet, 40 MG PO DAILY, (Reported) Cholecalciferol (Vitamin D3) (Vitamin D3) 50 Mcg Capsule, 50 MCG PO DAILY, (Reported) Ciprofloxacin HCl (Cipro) 500 Mg Tablet, 500 MG PO BID@,18 Metoprolol Succinate (Metoprolol Succinate) 25 Mg Tab.er.24h, 25 MG PO DAILY, (Reported) Metronidazole (Flagyl) 500 Mg Tablet, 500 MG PO Q8H Pantoprazole Sodium (Pantoprazole Sodium) 40 Mg Tablet.dr, 40 MG PO BID Sucralfate (Sucralfate) 1 Gm Tablet, 1 GM PO QID Scheduled PRN Zolpidem Tartrate (Zolpidem Tartrate) 5 Mg Tablet, 5 MG PO QHS PRN for SLEEP, (Reported) Allergies Coded Allergies: No Known Allergies (Unverified , 05/01/20) Aziza Epps April 06, 2021 15:47
== END 2021-04-06 10:48 | disposition home or self-care (01) | DRG 223 ==
LOC: M ED 09:56 → M SDC 13:45 → M ED INP 19:11 → M ICU 20:12 → M MSPAV 04-04 14:53
PROVIDERS: ADMIT Surgery; ATTEND Surgery
PROC: 8E0W4CZ Robotic Assisted Procedure of Trunk Region, Percutaneous Endoscopic Approach (ICD-10-PCS; 2021-04-01)
PROC: 0DJ08ZZ Inspection of Upper Intestinal Tract, Via Natural or Artificial Opening Endoscopic (ICD-10-PCS; 2021-04-01)
PROC: 0DUA47Z Supplement Jejunum with Autologous Tissue Substitute, Percutaneous Endoscopic Approach (ICD-10-PCS; principal; 2021-04-01 12:55)
DX: K95.89 Other complications of other bariatric procedure (principal); K65.0 Generalized (acute) peritonitis; K63.1 Perforation of intestine (nontraumatic); Z68.43 Body mass index [BMI] 50.0-59.9, adult; E66.01 Morbid (severe) obesity due to excess calories; K91.89 Other postprocedural complications and disorders of digestive system; G47.00 Insomnia, unspecified; E78.5 Hyperlipidemia, unspecified; I10 Essential (primary) hypertension; Z79.899 Other long term (current) drug therapy

== ENCOUNTER → 2021-09-08 | Outpatient (CLI) | payer OTHER ==
[~2021-09-08] MED LIST changes: +AMLO1TAB25 PO; +CIPR-249 PO; +D31000TA2 PO; +FLAG500T PO; +METO1TAB32 PO; +PANT40TA29 PO; +SUCR1TA PO; +VITA200016 PO; +ZOLP5TAB PO
== END ==
LOC: M LABSMTC 09:06
PROVIDERS: ATTEND Anesthesiology
DX: Z01.812 Encounter for preprocedural laboratory examination (principal); Z20.822 Contact with and (suspected) exposure to COVID-19

== ENCOUNTER 2021-09-13 08:51 | Day surgery (SDC) | payer OTHER ==
[~2021-09-13] VITALS: Ht 180.3 cm; Wt 177.8 kg
[~2021-09-13 08:51] MED LIST changes: +NS 1,000 ML IV ONE
--- OUTSIDE RECORDS SUMMARY | 2021-09-13 08:54 | CCD | Continuity of Care Document ---
Author Author DEBBIE SAMAYOA, Toni Cooper Organization Unknown Address [address] [facility] [address] [place] [address] Phone [phone] Care Team Providers Care Mortar Carrier Name Role Phone Jesus Alberto Burnette M.D. AUTM [phone] Problems Description No Active Problems Social History Type Date Description Comments Sex Unknown ETOH Use Denies alcohol use Tobacco Use Start: Unknown Denies Smoking Recreational Drug Use Denies Drug Use Allergies, Adverse Reactions, Alerts Description No Known Drug Allergies Medications Active Medications SIG Qnty Indications Ordering Provide r Date Protonix 40mg Tablets DR 1 by mouth every day 30tabs K28.1 Claude Duran MD Atorvastatin Calcium 40mg Tablets 1 qd Unknown Vitamin D3 50mcg (1999 Ut) Capsules 1 qd Unknown Metoprolol Succinate ER 25mg Tablets ER 24HR 1 qd Unknown Zolpidem Tartrate 5mg Tablets 1 QHS prn Unknown Glucosamine Chondroitin 1500 Complex 1500Com Capsules 2 Tabs qd Unknown Immunizations Description No Information Available Vital Signs Date Vital Result Comment 06/27/2021 9:41am BP Systolic 145 mmHg BP Diastolic 84 mmHg Heart Rate 66 /min Height 71 inches 5'11" Weight 394.00 lb BMI (Body Mass Index) 54.9 kg/m2 [place] Body Weight 172 lb Weight 178.718 kg BSA (Body Surface Area) 2.81 m2 04/13/2021 2:43pm BP Systolic 132 mmHg BP Diastolic 80 mmHg Height 71 inches 5'11" Weight 400.12 lb BMI (Body Mass Index) 55.8 kg/m2 [place] Body Weight 172 lb Weight 181.497 kg BSA (Body Surface Area) 2.83 m2 Results Description No Information Available Procedures Date Code Description Status 06/27/2021 65089 Office/Outpatient Established Mo d MDM 30-39 Min Completed Medical Devices Description No Information Available Encounters Type Date Location Provider Dx Diagnosis Office Visit 06/27/2021 9:45a [facility] Ranjit Duran MD Z98.84 Bariatric surgery status K28.1 Acute gastrojejunal ulcer wi th perforation Office Visit 04/13/2021 3:00p [facility] Ranjit Duran MD K28.1 Acute gastrojejunal ulcer wi th perforation Z98.84 Bariatric surgery status Z48.815 Encntr for surgical aftcr fo llowing surgery on the dgstv sys Assessments Date Code Description Provider 06/27/2021 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 Ranjit Duran MD 06/27/2021 K28.1 Gastrojejunal ulcer with perfora tion but without obstruction Claude Duran MD 04/13/2021 K28.1 Gastrojejunal ulcer with perfora tion but without obstruction Claude Duran MD 04/13/2021 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 He continues to do well after the emergent repair of the gastrojejunal ulcer perforation. It turns out that he is not on any acid reducing medications right now. He told me he completed the 30-day course and there was not any refill. He is not complaining of any discomfort at this time, no heartburn symptoms, no dyspepsia. I think it is quite a high risk that I would like to restart him on this and probably should be on some acid reducing medication indefinitely. I will schedule him for an upper endoscopy for follow-up make sure the ulcer healed appropriately as well as rule out other causes that may predispose him to recurrence of the ulcers like foreign body, chronic ulcers.I discussed with the patient the details of the proposed procedure, the benefits of performing the procedure, the most common risks on doing the procedure. This may include risks of aspiration, bleeding and perforation. I have given him a chance to ask questions, voice out concerns. Patient has agreed to proceed Functional Status Description No Information Available Mental Status Description No Information Available Referrals Refer to Reason for Referral Status Appt Date Claude Duran MD Created [address] [address] [phone]
--- OUTSIDE RECORDS SUMMARY | 2021-09-13 08:55 | CCD | Continuity of Care Document ---
Author Author DEBBIE SAMAYOA, Toni Cooper Organization Unknown Address [address] [facility] [address] [place] [address] Phone [phone] Care Team Providers Care Factory Assembler Name Role Phone Jesus Alberto Burnette M.D. AUTM [phone] Problems Description No Active Problems Social History Type Date Description Comments Sex Unknown ETOH Use Denies alcohol use Tobacco Use Start: Unknown Denies Smoking Recreational Drug Use Denies Drug Use Allergies, Adverse Reactions, Alerts Description No Known Drug Allergies Medications Active Medications SIG Qnty Indications Ordering Provide r Date Atorvastatin Calcium 40mg Tablets 1 qd Unknown Vitamin D3 50mcg (2000 Ut) Capsules 1 qd Unknown Metoprolol Succinate [...] lb BMI (Body Mass Index) 54.9 kg/m2 [place] Body Weight 172 lb Weight 178.718 kg BSA (Body Surface Area) 2.81 m2 04/13/2021 2:43pm BP Systolic 132 mmHg BP Diastolic 80 mmHg Height 71 inches 5'11" Weight 400.12 lb BMI (Body Mass Index) 55.8 kg/m2 [place] Body Weight 172 lb Weight 181.497 kg BSA (Body Surface Area) 2.83 m2 Results Description No Information Available Procedures Description No Information Available Medical Devices Description No Information Available Encounters Description No Information Available Assessments Date Code Description Provider 06/27/2021 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
--- OUTSIDE RECORDS SUMMARY | 2021-09-13 08:55 | CCD ---
Author Author [facility] Organization [facility] Address Unknown Phone Unavailable Care Team Providers Care Racing Manager Name Role Phone Carlos A LEWIS MD Unavailable Unavailable Carlos A LEWIS MD Unavailable Unavailable Carlos A LEWIS MD Unavailable Unavailable Carlos A LEWIS MD Unavailable Unavailable Carlos A LEWIS MD Unavailable Unavailable Carlos A LEWIS MD Unavailable Unavailable Carlos A LEWIS MD Unavailable Unavailable Carlos A LEWIS MD Unavailable Unavailable Carlos A LEWIS MD Unavailable Unavailable Carlos A LEWIS MD Unavailable Unavailable Carlos A LEWIS MD Unavailable Unavailable Carlos A LEWIS MD Unavailable Unavailable Carlos A LEWIS MD Unavailable Unavailable Carlos A LEWIS MD Unavailable Unavailable Carlos A LEWIS MD Unavailable Unavailable Carlos A LEWIS MD Unavailable Unavailable Carlos A LEWIS MD Unavailable Unavailable Carlos A LEWIS MD Unavailable Unavailable Carlos A LEWIS MD Unavailable Unavailable Carlos A LEWIS MD Unavailable Unavailable Carlos A LEWIS MD Unavailable Unavailable Carlos A LEWIS MD Unavailable Carlos A Herr MD Unavailable Unavailable Carlos A LEWIS MD Unavailable Unavailable Carlos A LEWIS MD Unavailable Unavailable Carlos A LEWIS MD Unavailable Unavailable Carlos A LEWIS MD Unavailable Unavailable Carlos A LEWIS MD Unavailable Unavailable Carlos A LEWIS MD Unavailable Unavailable Carlos A LEWIS MD Unavailable Unavailable Carlos A LEWIS MD Unavailable Unavailable Carlos A LEWIS MD Unavailable Unavailable Carlos A LEWIS MD Unavailable Unavailable Carlos A LEWIS MD Unavailable Unavailable Re-disclosure Warning The records that you are about to access may contain information from federally-assisted alcohol or drug abuse programs. If such information is present, then the following federally mandated warning applies: This information has been disclosed to you from records protected by federal confidentiality rules (42 CFR part 2). The federal rules prohibit you from making any further disclosure of this information unless further disclosure is expressly permitted by the written consent of the person to whom it pertains or as otherwise permitted by 42 CFR part 2. A general authorization for the release of medical or other information is NOT sufficient for this purpose. The Federal rules restrict any use of the information to criminally investigate or prosecute any alcohol or drug abuse patient.The records that you are about to access may contain highly sensitive health information, the redisclosure of which is protected by Article 27-F of the [facility] Public Health law. If you continue you may have access to information: Regarding HIV / AIDS; Provided by facilities licensed or operated by the [facility] Office of Mental Health; or Provided by the [facility] Office for People With Developmental Disabilities. If such information is present, then the following [facility] mandated warning applies: This information has been disclosed to you from confidential records which are protected by state law. State law prohibits you from making any further disclosure of this information without the specific written consent of the person to whom it pertains, or as otherwise permitted by law. Any unauthorized further disclosure in violation of state law may result in a fine or halfway sentence or both. A general authorization for the release of medical or other information is NOT sufficient authorization for further disc losure. Family History Family Member Name Family Member Gender Family Member Status Date o f Status Description Data Source(s) Unknown Female Problem [facility] ([facility]) Unknown Female Problem [facility] ([facility]) Unknown Female Problem [facility] ([facility]) Unknown Female Problem [facility] ([facility]) Unknown Unknown Problem [facility] ([facility]) Unknown Unknown Problem [facility] ([facility]) Unknown Unknown Problem [facility] ([facility]) Encounters Encounter Providers Location Date Indications Data Source(s ) Outpatient Attender: ELLIOTT Escoto/Sammie/Benton/ Reindl 06/27/2021 09:45:00 AM EDT [facility] ([facility]) Office Visit Attender: ELLIOTT Escoto/Sammie/Benton/ Reindl 04/13/2021 03:00:00 PM EDT [facility] ([facility]) Outpatient 01/21/2021 02:45:28 AM EST - 021 02:45:58 AM EST [facility] ([facility]) Immunizations Vaccine Date Status Description Data Source(s) COVID-19 VACCINE Moderna 03/10/2021 12:00:00 AM EDT completed [facility] Vaccine Series Complete: YESThis Data wa s Submitted to [facility] [employer]. COVID-19 VACCINE Moderna 02/10/2021 12:00:00 AM EDT completed [facility] Vaccine Series Complete: NOThis Data was Submitted to [facility] [employer]. Medications Medication Brand Name Start Date Product Form Dose Route Admi nistrative Instructions Pharmacy Instructions Status Indications Reaction Description Data Source(s) atorvastatin 40 MG Oral Tablet ATORVASTATIN CALCIUM 08/23/2021 1 2:00:00 AM EDT tablet 30 TAKE ONE TABLET BY MOUTH EVERY D AY TAKE ONE TABLET BY MOUTH EVERY DAY SOLD: 08/27/2021 [facility] 5 mg 08/04/2021 12:00:00 AM EDT tablet 30 TAKE ONE TABLET BY MOUTH AT BEDTIME. MAXIMUM DAILY DOSE = 1 TAKE ONE TABLET BY MOUTH AT BEDTIME. MAX IMUM DAILY DOSE = 1 SOLD: 08/05/2021 [facility] 5 mg 06/29/2021 12:00:00 AM EDT tablet 30 TAKE ONE TABLET BY MOUTH DAILY AT BEDTIME MAXIMUM DAILY DOSE = 1 TABLET TAKE ONE TABLET BY MOUTH DAILY AT BEDTIM E MAXIMUM DAILY DOSE = 1 TABLET SOLD: 06/30/2021 [facility] pantoprazole 40 MG Delayed Release Oral Tablet PANTOPRAZOLE SODIUM 06/27/2021 12:00:00 AM EDT tablet,delayed release (DR/EC) 30 T BRISA ONE TABLET BY MOUTH EVERY DAY TAKE ONE TABLET BY MOUTH EVERY DAY SOLD: 08/05/2021 [facility] pantoprazole 40 MG Delayed Release Oral Tablet PANTOPRAZOLE SODIUM 06/27/2021 12:00:00 AM EDT tablet,delayed release (DR/EC) 30 T BRISA ONE TABLET BY MOUTH EVERY DAY TAKE ONE TABLET BY MOUTH EVERY DAY SOLD: 09/08/2021 [facility] pantoprazole 40 MG Delayed Release Oral Tablet PANTOPRAZOLE SODIUM 06/27/2021 12:00:00 AM EDT tablet,delayed release (DR/EC) 30 T BRISA ONE TABLET BY MOUTH EVERY DAY TAKE ONE TABLET BY MOUTH EVERY DAY SOLD: 06/30/2021 [facility] pantoprazole 40 MG Delayed Release Oral Tablet [Protonix] Pr otonix 06/27/2021 12:00:00 AM EDT ORAL active M EDENT ([facility], ) 5 mg 05/30/2021 12:00:00 AM EDT tablet 30 TAKE 1 TABLET BY MOUTH AT EACH BEDTIME MAXIMUM DAILY DOSE = 1 TABLET TAKE 1 TABLET BY MOUTH AT EACH BEDTIME MAXIMUM DAILY DOSE = 1 TABLET SOLD: 06/01/2021 [facility] 5 mg 04/26/2021 12:00:00 AM EDT tablet 30 TAKE 1 TABLET BY MOUTH DAILY AT BEDTIME MAXIMUM DAILY DOSE = 1 TABLET TAKE 1 TABLET BY MOUTH DAILY AT BEDTIME MAXIMUM DAILY DOSE = 1 TABLET SOLD: 04/27/2021 [facility] 25 mg 04/24/2021 12:00:00 AM EDT tablet extended release 24 hr 30 TAKE 1 TABLET BY MOUTH ONCE A DAY TAKE 1 TABLET BY MOUTH ONCE A DAY SOLD: 07/27/2021 [facility] 25 mg 04/24/2021 12:00:00 AM EDT tablet extended release 24 hr 30 TAKE 1 TABLET BY MOUTH ONCE A DAY TAKE 1 TABLET BY MOUTH ONCE A DAY SOLD: 05/27/2021 [facility] 25 mg 04/24/2021 12:00:00 AM EDT tablet extended release 24 hr 30 TAKE 1 TABLET BY MOUTH ONCE A DAY TAKE 1 TABLET BY MOUTH ONCE A DAY SOLD: 04/27/2021 [facility] 25 mg 04/24/2021 12:00:00 AM EDT tablet extended release 24 hr 30 TAKE 1 TABLET BY MOUTH ONCE A DAY TAKE 1 TABLET BY MOUTH ONCE A DAY SOLD: 08/27/2021 [facility] 25 mg 04/24/2021 12:00:00 AM EDT tablet extended release 24 hr 30 TAKE 1 TABLET BY MOUTH ONCE A DAY TAKE 1 TABLET BY MOUTH ONCE A DAY SOLD: 06/27/2021 [facility] 10 mg 04/06/2021 12:00:00 AM EDT tablet 7 TAKE 1 TABLET [10MG] BY MOUTH DAILY TAKE 1 TABLET [10MG] BY MOUTH DAILY SOLD: 04/06/2021 [facility] 500 mg 04/06/2021 12:00:00 AM EDT tablet 10 TAKE 1 TABLET [500MG] BY MOUTH TWO TIMES A DAY AT 6:00AM AND 6:00PM TAKE 1 TABLET [500MG] BY MOUTH TWO TIMES A DAY AT 6:00AM AND 6:00PM SOLD: 04/06/2021 [facility] pantoprazole 40 MG Delayed Release Oral Tablet PANTOPRAZOLE SODIUM 04/06/2021 12:00:00 AM EDT tablet,delayed release (DR/EC) 60 T BRISA 1 TABLET [40MG] BY MOUTH TWO TIMES A DAY TAKE 1 TABLET [40MG] BY MOUTH TWO TIMES A DAY SOLD: 04/06/2021 [facility] Metronidazole 500 MG Oral Tablet METRONIDAZOLE 04/06/2021 12:0 0:00 AM EDT tablet 15 TAKE 1 TABLET [500MG] BY MOUTH E VERY 8 HOURS TAKE 1 TABLET [500MG] BY MOUTH EVERY 8 HOURS SOLD: 04/06/2021 [facility] 1 gram 04/06/2021 12:00:00 AM EDT tablet 120 TAKE 1 TABLET [1 GRAM] BY MOUTH FOUR TIMES A DAY TAKE 1 TABLET [1 GRAM] BY MOUTH FOUR TIMES A DAY SOLD: 04/06/2021 [facility] 25 mg 03/29/2021 12:00:00 AM EDT tablet extended release 24 hr 30 TAKE ONE TABLET BY MOUTH EVERY DAY TAKE ONE TABLET BY MOUTH EVERY DAY SOLD: 03/29/2021 [facility] 50 mcg (2,000 unit) 03/28/2021 12:00:00 AM EDT capsule 30 TAKE ONE CAPSULE BY MOUTH EVERY DAY TAKE ONE CAPSULE BY MOUTH EVERY DAY SOLD: 08/27/2021 [facility] 50 mcg (2,000 unit) 03/28/2021 12:00:00 AM EDT capsule 30 TAKE ONE CAPSULE BY MOUTH EVERY DAY TAKE ONE CAPSULE BY MOUTH EVERY DAY SOLD: 06/27/2021 [facility] 50 mcg (2,000 unit) 03/28/2021 12:00:00 AM EDT capsule 30 TAKE ONE CAPSULE BY MOUTH EVERY DAY TAKE ONE CAPSULE BY MOUTH EVERY DAY SOLD: 04/27/2021 [facility] 50 mcg (2,000 unit) 03/28/2021 12:00:00 AM EDT capsule 30 TAKE ONE CAPSULE BY MOUTH EVERY DAY TAKE ONE CAPSULE BY MOUTH EVERY DAY SOLD: 07/27/2021 [facility] 50 mcg (2,000 unit) 03/28/2021 12:00:00 AM EDT capsule 30 TAKE ONE CAPSULE BY MOUTH EVERY DAY TAKE ONE CAPSULE BY MOUTH EVERY DAY SOLD: 05/27/2021 [facility] 50 mcg (2,000 unit) 03/28/2021 12:00:00 AM EDT capsule 30 TAKE ONE CAPSULE BY MOUTH EVERY DAY TAKE ONE CAPSULE BY MOUTH EVERY DAY SOLD: 03/29/2021 [facility] atorvastatin 40 MG Oral Tablet ATORVASTATIN CALCIUM 03/24/2021 1 2:00:00 AM EDT tablet 30 TAKE ONE TABLET BY MOUTH EVERY D AY TAKE ONE TABLET BY MOUTH EVERY DAY SOLD: 04/27/2021 [facility] atorvastatin 40 MG Oral Tablet ATORVASTATIN CALCIUM 03/24/2021 1 2:00:00 AM EDT tablet 30 TAKE ONE TABLET BY MOUTH EVERY D AY TAKE ONE TABLET BY MOUTH EVERY DAY SOLD: 06/27/2021 [facility] atorvastatin 40 MG Oral Tablet ATORVASTATIN CALCIUM 03/24/2021 1 2:00:00 AM EDT tablet 30 TAKE ONE TABLET BY MOUTH EVERY D AY TAKE ONE TABLET BY MOUTH EVERY DAY SOLD: 05/27/2021 [facility] atorvastatin 40 MG Oral Tablet ATORVASTATIN CALCIUM 03/24/2021 1 2:00:00 AM EDT tablet 30 TAKE ONE TABLET BY MOUTH EVERY D AY TAKE ONE TABLET BY MOUTH EVERY DAY SOLD: 03/27/2021 [facility] atorvastatin 40 MG Oral Tablet ATORVASTATIN CALCIUM 03/24/2021 1 2:00:00 AM EDT tablet 30 TAKE ONE TABLET BY MOUTH EVERY D AY TAKE ONE TABLET BY MOUTH EVERY DAY SOLD: 07/27/2021 [facility] 5 mg 02/16/2021 12:00:00 AM EDT tablet 30 TAKE ONE TABLET BY MOUTH EVERY DAY AT BEDTIME MAXIMUM DAILY DOSE = 1 TABLET TAKE ONE TABLET BY MOUTH EVERY DAY AT BEDTIME MAXIMUM DAILY DOSE = 1 TABLET SOLD: 02/16/2021 [facility] 5 mg 12/27/2020 12:00:00 AM EST tablet 30 TAKE ONE TABLET BY MOUTH EVERY DAY AT BEDTIME MAXIMUM DAILY DOSE = 1 TABLET TAKE ONE TABLET BY MOUTH EVERY DAY AT BEDTIME MAXIMUM DAILY DOSE = 1 TABLET SOLD: 01/17/2021 [facility] 25 mg 12/24/2020 12:00:00 AM EST tablet extended release 24 hr 30 TAKE 1 TABLET BY MOUTH ONCE A DAY TAKE 1 TABLET BY MOUTH ONCE A DAY SOLD: 12/27/2020 [facility] 25 mg 11/21/2020 12:00:00 AM EST tablet extended release 24 hr 30 TAKE ONE TABLET BY MOUTH ONCE DAILY TAKE ONE TABLET BY MOUTH ONCE DAILY SOLD: 11/28/2020 [facility] 25 mcg (1,000 unit) 10/27/2020 12:00:00 AM EST tablet 30 TAKE ONE TABLET BY MOUTH EVERY DAY TAKE ONE TABLET BY MOUTH EVERY DAY SOLD: 11/28/2020 [facility] 25 mcg (1,000 unit) 10/27/2020 12:00:00 AM EST tablet 30 TAKE ONE TABLET BY MOUTH EVERY DAY TAKE ONE TABLET BY MOUTH EVERY DAY SOLD: 02/25/2021 [facility] 25 mcg (1,000 unit) 10/27/2020 12:00:00 AM EST tablet 30 TAKE ONE TABLET BY MOUTH EVERY DAY TAKE ONE TABLET BY MOUTH EVERY DAY SOLD: 12/27/2020 [facility] 25 mg 10/27/2020 12:00:00 AM EST tablet extended release 24 hr 30 TAKE ONE TABLET BY MOUTH EVERY DAY TAKE ONE TABLET BY MOUTH EVERY DAY SOLD: 10/29/2020 [facility] 25 mcg (1,000 unit) 10/27/2020 12:00:00 AM EST tablet 30 TAKE ONE TABLET BY MOUTH EVERY DAY TAKE ONE TABLET BY MOUTH EVERY DAY SOLD: 10/29/2020 [facility] 25 mcg (1,000 unit) 10/27/2020 12:00:00 AM EST tablet 30 TAKE ONE TABLET BY MOUTH EVERY DAY TAKE ONE TABLET BY MOUTH EVERY DAY SOLD: 01/28/2021 [facility] atorvastatin 40 MG Oral Tablet ATORVASTATIN CALCIUM 09/23/2020 1 2:00:00 AM EDT tablet 30 TAKE 1 TABLET BY MOUTH ONCE A DAY TAKE 1 TABLET BY MOUTH ONCE A DAY SOLD: 10/29/2020 [facility] atorvastatin 40 MG Oral Tablet ATORVASTATIN CALCIUM 09/23/2020 1 2:00:00 AM EDT tablet 30 TAKE 1 TABLET BY MOUTH ONCE A DAY TAKE 1 TABLET BY MOUTH ONCE A DAY SOLD: 02/25/2021 [facility] atorvastatin 40 MG Oral Tablet ATORVASTATIN CALCIUM 09/23/2020 1 2:00:00 AM EDT tablet 30 TAKE 1 TABLET BY MOUTH ONCE A DAY TAKE 1 TABLET BY MOUTH ONCE A DAY SOLD: 12/27/2020 [facility] atorvastatin 40 MG Oral Tablet ATORVASTATIN CALCIUM 09/23/2020 1 2:00:00 AM EDT tablet 30 TAKE 1 TABLET BY MOUTH ONCE A DAY TAKE 1 TABLET BY MOUTH ONCE A DAY SOLD: 11/28/2020 [facility] atorvastatin 40 MG Oral Tablet ATORVASTATIN CALCIUM 09/23/2020 1 2:00:00 AM EDT tablet 30 TAKE 1 TABLET BY MOUTH ONCE A DAY TAKE 1 TABLET BY MOUTH ONCE A DAY SOLD: 09/29/2020 [facility] atorvastatin 40 MG Oral Tablet ATORVASTATIN CALCIUM 09/23/2020 1 2:00:00 AM EDT tablet 30 TAKE 1 TABLET BY MOUTH ONCE A DAY TAKE 1 TABLET BY MOUTH ONCE A DAY SOLD: 01/28/2021 [facility] 25 mg 08/25/2020 12:00:00 AM EDT tablet extended release 24 hr 30 TAKE ONE TABLET BY MOUTH EVERY DAY TAKE ONE TABLET BY MOUTH EVERY DAY SOLD: 09/29/2020 [facility] 25 mg 08/25/2020 12:00:00 AM EDT tablet extended release 24 hr 30 TAKE ONE TABLET BY MOUTH EVERY DAY TAKE ONE TABLET BY MOUTH EVERY DAY SOLD: 08/26/2020 [facility] 25 mg 06/20/2020 12:00:00 AM EDT tablet extended release 24 hr 30 TAKE 1 TABLET BY MOUTH ONCE A DAY TAKE 1 TABLET BY MOUTH ONCE A DAY SOLD: 07/29/2020 [facility] 25 mcg (1,000 unit) 04/20/2020 12:00:00 AM EDT tablet 30 TAKE ONE TABLET BY MOUTH EVERY DAY TAKE ONE TABLET BY MOUTH EVERY DAY SOLD: 09/29/2020 [facility] 25 mcg (1,000 unit) 04/20/2020 12:00:00 AM EDT tablet 30 TAKE ONE TABLET BY MOUTH EVERY DAY TAKE ONE TABLET BY MOUTH EVERY DAY SOLD: 08/27/2020 [facility] 25 mcg (1,000 unit) 04/20/2020 12:00:00 AM EDT tablet 30 TAKE ONE TABLET BY MOUTH EVERY DAY TAKE ONE TABLET BY MOUTH EVERY DAY SOLD: 07/29/2020 [facility] 40 mg 03/21/2020 12:00:00 AM EDT tablet 30 TAKE 1 TABLET BY MOUTH ONCE A DAY TAKE 1 TABLET BY MOUTH ONCE A DAY SOLD: 07/29/2020 [facility] atorvastatin 40 MG Oral Tablet ATORVASTATIN CALCIUM 03/21/2020 1 2:00:00 AM EDT tablet 30 TAKE 1 TABLET BY MOUTH ONCE A DAY TAKE 1 TABLET BY MOUTH ONCE A DAY SOLD: 08/27/2020 [facility] Insurance Providers Payer name Policy type / Coverage type Policy ID Covered libertarian ID Covered libertarian's relationship to vences Policy Vences Plan Information [facility] Community Plan Commercial [id number] Self [id number] [facility] O [id number] S [id number] [facility] Health Maintenance Organization (HMO) [id number] Self [facility] Community Plan Commercial [id number] Self [facility]) P [id number] S [id number] [facility] COMMUNITY PLAN [facility] [id number] SP [id number] [facility] [id number] SP [id number] Problems, Conditions, and Diagnoses No Information Surgeries/Procedures Procedure Description Date Indications Data Source(s) OFFICE OUTPATIENT VISIT 25 MINUTES 06/27/2021 12:00:00 AM EDT [facility] ([facility] ) Results ID Date Data Source [id number] 04/01/2021 12:36:00 PM EDT [facility] Name Value Range Interpretation Code Description Data Tova rce(s) Supporting Document(s) SARS coronavirus 2 RNA [Presence] in Res piratory specimen by ANAY with probe detection NEGATIVE [facility] This lab was ordered by [facility] a nd reported by [facility]. Procedure Social History No Information Vital Signs ID Date Data Source UNK Name Value Range Interpretation Code Description Data Source(s) Systolic blood pressure 145 mm[Hg] 145 mm[Hg] [facility]) Diastolic blood pressure 84 mm[Hg] 84 mm[Hg] [facility] ([facility]) Body weight 394.00 [lb_av] 394.00 [lb_av] [facility] ([facility]) Heart rate 66 /min 66 /min [facility] ([facility]) Body height 71 [in_i] 71 [in_i] [facility] ([facility]) 5'11" Body mass index (BMI) [Ratio] 54.9 kg/m2 54.9 k g/m2 [facility] ([facility]) Venus body weight 172 [lb_av] 172 [lb_av] [facility] ([facility]) Body weight 178.[address] [facility] ([facility]) Body surface area Derived from formula 2.[address] [facility] ([facility]) Body height 71 [in_i] 71 [in_i] [facility] ([facility]) 511" Diastolic blood pressure 80 mm[Hg] 80 mm[Hg] [facility] ([facility]) Body height 71 [in_i] 71 [in_i] [facility] ([facility]) 5'11" Body weight 400.12 [lb_av] 400.12 [lb_av] [facility] ([facility]) Body mass index (BMI) [Ratio] 55.8 kg/m2 55.8 k g/m2 [facility] ([facility]) Systolic blood pressure 132 mm[Hg] 132 mm[Hg] [facility]) Venus body weight 172 [lb_av] 172 [lb_av] [facility] ([facility]) Body weight 181.[address] [facility] ([facility]) Body surface area Derived from formula 2.[address] [facility] ([facility]) Body weight 400.12 [lb_av] 400.12 [lb_av] [facility] ([facility]) Body mass index (BMI) [Ratio] 55.8 kg/m2 55.8 k g/m2 [facility] ([facility]) Venus body weight 172 [lb_av] 172 [facility]_av[facility] Body weight 181.[address] [facility] ([facility]) Body surface area Derived from formula 2.[address] [facility] ([facility])
--- OUTSIDE RECORDS SUMMARY | 2021-09-13 08:55 | CCD | Continuity of Care Document ---
Author Author DEBBIE SAMAYOA, Toni Cooper Organization Unknown Address 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 AUTM [phone] Problems Description No Active Problems Social History [...] lb BMI (Body Mass Index) 54.9 kg/m2 [place] Body Weight 172 lb Weight 178.718 kg BSA (Body Surface Area) 2.81 m2 04/13/2021 2:43pm BP Systolic 132 mmHg BP Diastolic 80 mmHg Height 71 inches 5'11" Weight 400.12 lb BMI (Body Mass Index) 55.8 kg/m2 [place] Body Weight 172 lb Weight 181.497 kg BSA (Body Surface Area) 2.83 m2 Results Description No Information Available Procedures Date Code Description Status 06/27/2021 05677 Office/Outpatient Established Mo d MDM 30-39 Min Completed Medical Devices Description No Information Available Encounters Type Date Location Provider Dx Diagnosis Office Visit 06/27/2021 9:45a [facility] Ranjit Duran MD Z98.84 Bariatric surgery status K28.1 Acute gastrojejunal ulcer wi th perforation Assessments Date Code Description Provider 06/27/2021 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
[2021-09-13] MEDS ORDERED: fentaNYL 100 MCG/2 ML INJECTION (J3010) As Ordered ONE (09:13)
[2021-09-13] MEDS ORDERED: propofoL 500 MG/50 ML VIAL As Ordered ONE (09:13)
[2021-09-13] MEDS ORDERED: LIDOCAINE 2% 100MG/5ML SDV (FOR ANES.) As Ordered ONE (09:13)
--- NOTE | 2021-09-13 09:35 | ROOR ---
Patient Name: Toni Daniel Procedure Date: 09/13/2021 9:21 AM Date of : 1960 Age: 60 Room: [facility] Gender: Male Note Status: Finalized Procedure: Upper GI endoscopy Indications: Follow-up of acute gastrojejunal ulcer with perforation Providers: Claude Duran MD Referring MD: Jesus Alberto Burnette MD Requesting Provider: Medicines: Monitored Anesthesia Care Complications: No immediate complications. Procedure: Pre-Anesthesia Assessment: - Prior to the procedure, a History and Physical was performed, and patient medications and allergies were reviewed. The patient is competent. The risks and benefits of the procedure and the sedation options and risks were discussed with the patient. All questions were answered and informed consent was obtained. Patient identification and proposed procedure were verified by the physician, the nurse and the anesthesiologist in the endoscopy suite. Mental Status Examination: alert and oriented. Airway Examination: normal oropharyngeal airway and neck mobility. Respiratory Examination: clear to auscultation. CV Examination: normal. Prophylactic Antibiotics: The patient does not require prophylactic antibiotics. Prior Anticoagulants: The patient has taken no previous anticoagulant or antiplatelet agents. ASA Grade Assessment: III - A patient with severe systemic disease. After reviewing the risks and benefits, the patient was deemed in satisfactory condition to undergo the procedure. The anesthesia plan was to use monitored anesthesia care (MAC). Immediately prior to administration of medications, the patient was re-assessed for adequacy to receive sedatives. The heart rate, respiratory rate, oxygen saturations, blood pressure, adequacy of pulmonary ventilation, and response to care were monitored throughout the procedure. The physical status of the patient was re-assessed after the procedure. The Endoscope was introduced through the mouth, and advanced to the efferent jejunal loop. The upper GI endoscopy was accomplished without difficulty. The patient tolerated the procedure well. Findings: The Z-line was irregular and was found 38 cm from the incisors. Two non-bleeding linear gastric ulcers with no stigmata of bleeding were found in the gastric fundus. The largest lesion was 2 mm in largest dimension. The examined jejunum was normal. Estimated blood loss: none. Impression: - Z-line irregular, 38 cm from the incisors. - Non-bleeding gastric ulcers with no stigmata of bleeding. - Normal examined jejunum. - No specimens collected. Recommendation: - Discharge patient to home (ambulatory). - Continue present medications. Procedure Code(s): --- Professional --- 08609, Esophagogastroduodenoscopy, flexible, transoral; diagnostic, including collection of specimen(s) by brushing or washing, when performed (separate procedure) Diagnosis Code(s): --- Professional --- K22.8, Other specified diseases of esophagus K25.9, Gastric ulcer, unspecified as acute or chronic, without hemorrhage or perforation K28.1, Acute gastrojejunal ulcer with perforation CPT copyright 2019 [employer]. All rights reserved. The codes documented in this report are preliminary and upon animal sticker review may be revised to meet current compliance requirements. Claude Duran MD Claude Duran MD 09/13/2021 9:35:26 AM Electronically signed by lCaude Duran MD Number of Addenda: 0 Note Initiated On: 09/13/2021 9:21 AM Estimated Blood Loss: Estimated blood loss: none.
[2021-09-13 09:50] VITALS: BP 133/76
== END 2021-09-13 10:00 | disposition home or self-care (01) ==
LOC: M OPP 08:51
PROVIDERS: ATTEND Surgery
DX: K22.89 Other specified disease of esophagus (principal); K28.1 Acute gastrojejunal ulcer with perforation; Z98.84 Bariatric surgery status; Z79.899 Other long term (current) drug therapy
CPT/HCPCS: 43235; J3010

== ENCOUNTER → 2022-05-08 | Outpatient (CLI) | payer OTHER ==
[~2022-05-08] MED LIST changes: -D31000TA2 PO; -NS 1,000 ML IV ONE; +VITA100093 PO
[2022-05-08 09:53] LABS: HEMATOCRIT 44.7 % (42.0-52.0); HEMOGLOBIN 14.5 g/dl (13.5-17.5); MEAN CORPUSCULAR HEMOGLOBIN 29.4 pg (27.0-33.0); MEAN CORPUSCULAR HGB CONC 32.4 g/dl (32.0-36.5); MEAN CORPUSCULAR VOLUME 90.7 fl (80.0-96.0); PLATELET COUNT, AUTOMATED 246 10^3/uL (150-450); RED BLOOD COUNT 4.93 10^6/uL (4.30-6.10); WHITE BLOOD COUNT 8.1 10^3/uL (4.0-10.0)
[2022-05-08 10:40] LABS: ALBUMIN 3.4 GM/DL (3.2-5.2); ALT/SGPT 28 U/L (12-78); BLOOD UREA NITROGEN 15 MG/DL (7-18); CALCIUM LEVEL 8.6 MG/DL (8.5-10.1); CARBON DIOXIDE LEVEL 25 MEQ/L (21-32); CHLORIDE LEVEL 110 MEQ/L (98-107); CHOLESTEROL LEVEL 136 MG/DL (<200); CHOLESTEROL RISK RATIO 2.266 (<5); FERRITIN 18 NG/ML (26-388); FOLATE 13.3 NG/ML; GLOMERULAR FILTRATION RATE > 60.0 (>56); GLUCOSE, FASTING 100 MG/DL (70-100); HDL CHOLESTEROL 60 MG/DL (>40); IRON (FE) 79 UG/DL (65-175); LDL CHOLESTEROL 48 MG/DL (<100); NON-HDL-C 76 MG/DL; PERCENT SATURATION 20.4 % (19.7-50.0); POTASSIUM SERUM 4.3 MEQ/L (3.5-5.1); SODIUM LEVEL 141 MEQ/L (136-145); TOTAL IRON BINDING CAPACITY 387 UG/DL (250-450); TRIGLYCERIDES LEVEL 139 MG/DL (<150); VITAMIN B12 LEVEL 330 PG/ML
== END ==
LOC: M LAB 09:02
PROVIDERS: ATTEND Family Medicine
DX: Z98.84 Bariatric surgery status (principal); I10 Essential (primary) hypertension

== ENCOUNTER 2022-09-04 22:26 | Emergency (ER) | payer OTHER ==
[~2022-09-04] VITALS: Ht 180.3 cm; Wt 194.6 kg
[2022-09-04 22:27] VITALS: BP 159/79
== END 2022-09-04 23:43 | disposition left against medical advice (07) ==
LOC: M ED 22:26
DX: Z53.21 Procedure and treatment not carried out due to patient leaving prior to being seen by health care provider (principal)

== ENCOUNTER → 2022-10-16 | Outpatient (CLI) | payer OTHER | LOC: M RAD 13:27 | PROVIDERS: ATTEND Family Medicine | DX: M25.761 Osteophyte, right knee (principal); M25.762 Osteophyte, left knee ==

== ENCOUNTER → 2023-07-10 | Outpatient (CLI) | payer OTHER | LOC: M SOG 10:57 | PROVIDERS: ATTEND Orthopaedic Surgery | DX: M25.562 Pain in left knee (principal); M25.561 Pain in right knee ==

== ENCOUNTER → 2024-02-05 | Outpatient (CLI) | payer OTHER ==
[2024-02-05 09:32] LABS: BASO % 0.4 % (0.0-1.0); EOS # 0.2 10^3/uL (0.0-0.5); EOS % 2.4 % (0.0-3.0); HEMATOCRIT 43.7 % (42.0-52.0); HEMOGLOBIN 14.3 g/dl (13.5-17.5); LYMPH # 1.5 10^3/uL (1.5-5.0); LYMPH % 21.1 % (24.0-44.0); MEAN CORPUSCULAR HEMOGLOBIN 29.1 pg (27.0-33.0); MEAN CORPUSCULAR HGB CONC 32.7 g/dl (32.0-36.5); MEAN CORPUSCULAR VOLUME 88.8 fl (80.0-96.0); MONO # 0.6 10^3/uL (0.0-0.8); MONO % 8.6 % (2.0-8.0); NEUTROPHILS # 4.8 10^3/uL (1.5-8.5); NEUTROPHILS % 67.1 % (36.0-66.0); PLATELET COUNT, AUTOMATED 239 10^3/uL (150-450); RED BLOOD COUNT 4.92 10^6/uL (4.30-6.10); WHITE BLOOD COUNT 7.1 10^3/uL (4.0-10.0)
[2024-02-05 09:54] LABS: ALBUMIN 3.5 G/DL (3.2-5.2); ALKALINE PHOSPHATASE 86 U/L (46-116); ALT/SGPT < 9 U/L (7.0-40); AST/SGOT < 8 U/L (<34); BILIRUBIN,TOTAL 1.2 MG/DL (0.3-1.2); BLOOD UREA NITROGEN 22 MG/DL (9-23); CALCIUM LEVEL 8.5 MG/DL (8.3-10.6); CARBON DIOXIDE LEVEL 25 MMOL/L (20-31); CHLORIDE LEVEL 107 MMOL/L (98-107); CHOLESTEROL LEVEL 129 MG/DL (<200); CHOLESTEROL RISK RATIO 2.94 (<5); CREATININE FOR GFR 0.86 MG/DL (0.70-1.30); GLOMERULAR FILTRATION RATE > 60.0 (>49); GLUCOSE, FASTING 99 MG/DL (74-106); HDL CHOLESTEROL 43.8 MG/DL (>40); IRON (FE) 81 UG/DL (65-175); LDL CHOLESTEROL 57.2 MG/DL (<100); NON-HDL-C 85.2 MG/DL; PERCENT SATURATION 20.5 % (19.7-50.0); POTASSIUM SERUM 4.2 MMOL/L (3.5-5.1); SODIUM LEVEL 139 MMOL/L (136-145); TOTAL IRON BINDING CAPACITY 395 UG/DL (250-425); TOTAL PROTEIN 6.5 G/DL (5.7-8.2); TRIGLYCERIDES LEVEL 140 MG/DL (<150)
[2024-02-05 09:57] LABS: FERRITIN 12.5 NG/ML (10.5-307.3)
[2024-02-05 09:58] LABS: FOLATE 14.63 NG/ML (>5.4); TOTAL 25(OH) VITAMIN D 36.6 NG/ML (20.0-100.0)
[2024-02-05 09:59] LABS: VITAMIN B12 LEVEL 263 PG/ML (211-911)
== END ==
LOC: M LAB 08:28
PROVIDERS: ATTEND Family Medicine
DX: I10 Essential (primary) hypertension (principal); Z98.84 Bariatric surgery status

== ENCOUNTER 2025-01-15 07:26 | Day surgery (SDC) | payer OTHER ==
[~2025-01-15] VITALS: Ht 182.9 cm; Wt 203.7 kg
[~2025-01-15 07:26] MED LIST changes: +APPL300T4 PO; +CIDA500T2 PO
[2025-01-15] MEDS ORDERED: propofoL 200 MG/20 ML VIAL As Ordered ONE (08:13)
[2025-01-15] MEDS ORDERED: LIDOCAINE 2% 100MG/5ML SDV (FOR ANES.) As Ordered ONE (08:13)
[2025-01-15] MEDS ORDERED: fentaNYL 100 MCG/2 ML INJECTION As Ordered ONE (08:14)
[2025-01-15] MEDS ORDERED: dexmedeTOMIDine (4MCG/ML)200MCG/50ML BTL (PRECEDEX) As Ordered ONE (08:21)
[2025-01-15 09:15] VITALS: TEMP 98.4
[2025-01-15 09:37] VITALS: BP 155/94; O2SAT 96
== END 2025-01-15 09:56 | disposition home or self-care (01) ==
LOC: M OPP 07:26
PROVIDERS: ATTEND Surgery
DX: Z12.11 Encounter for screening for malignant neoplasm of colon (principal); D12.6 Benign neoplasm of colon, unspecified; K57.30 Diverticulosis of large intestine without perforation or abscess without bleeding; Z98.84 Bariatric surgery status; Z98.0 Intestinal bypass and anastomosis status; Z87.11 Personal history of peptic ulcer disease; Z79.899 Other long term (current) drug therapy
CPT/HCPCS: 43235; 45385; 88305; J3010

== ENCOUNTER → 2025-03-31 | Outpatient (CLI) | payer OTHER ==
[2025-03-31 08:54] LABS: BASO # 0.1 10^3/uL (0.0-0.2); BASO % 0.6 % (0.0-1.0); EOS # 0.2 10^3/uL (0.0-0.5); HEMATOCRIT 45.2 % (42.0-52.0); HEMOGLOBIN 14.5 g/dl (13.5-17.5); LYMPH # 1.6 10^3/uL (1.5-5.0); LYMPH % 19.6 % (24.0-44.0); MEAN CORPUSCULAR HGB CONC 32.1 g/dl (32.0-36.5); MEAN CORPUSCULAR VOLUME 87.4 fl (80.0-96.0); MONO # 0.7 10^3/uL (0.0-0.8); MONO % 8.4 % (2.0-8.0); NEUTROPHILS # 5.4 10^3/uL (1.5-8.5); NEUTROPHILS % 67.5 % (36.0-66.0); PLATELET COUNT, AUTOMATED 273 10^3/uL (150-450); RED BLOOD COUNT 5.17 10^6/uL (4.30-6.10)
[2025-03-31 09:21] LABS: TOTAL IRON BINDING CAPACITY 389 UG/DL (250-425)
[2025-03-31 09:22] LABS: ALBUMIN 3.5 G/DL (3.2-5.2); ALKALINE PHOSPHATASE 116 U/L (40-129); ALT/SGPT 12 U/L (7.0-40); AST/SGOT 11 U/L (<34); BLOOD UREA NITROGEN 18 MG/DL (9-23); CALCIUM LEVEL 9.3 MG/DL (8.3-10.6); CARBON DIOXIDE LEVEL 25 MMOL/L (20-31); CHLORIDE LEVEL 105 MMOL/L (98-107); CHOLESTEROL LEVEL 124 MG/DL (<200); CHOLESTEROL RISK RATIO 2.79 (<5); CREATININE FOR GFR 0.93 MG/DL (0.70-1.30); FERRITIN 11.3 NG/ML (10.5-307.3); GLOMERULAR FILTRATION RATE > 90.0 (>49); GLUCOSE, FASTING 106 MG/DL (74-106); HDL CHOLESTEROL 44.3 MG/DL (>40); IRON (FE) 64 UG/DL (65-175); LDL CHOLESTEROL 48.1 MG/DL (<100); NON-HDL-C 79.7 MG/DL; PERCENT SATURATION 16.5 % (19.7-50.0); POTASSIUM SERUM 4.2 MMOL/L (3.5-5.1); SODIUM LEVEL 140 MMOL/L (136-145); TOTAL PROTEIN 6.6 G/DL (5.7-8.2); TRIGLYCERIDES LEVEL 158 MG/DL (<150)
[2025-03-31 09:23] LABS: FOLATE 10.8 NG/ML (>5.4); VITAMIN B12 LEVEL 241 PG/ML (211-911)
== END ==
LOC: M LAB 08:11
PROVIDERS: ATTEND Family Medicine
DX: Z98.84 Bariatric surgery status (principal); I10 Essential (primary) hypertension